=== PATIENT | female | born 1970 | race Caucasian/White ===

== ENCOUNTER 2018-01-10 06:22 | Inpatient (IN) | payer OTHER, SELFPAY ==
[2017-12-27 12:24] VITALS: BMI 34.4
[2018-01-10] VITALS (19 sets, daily range): BP systolic 93–132; BP diastolic 51–78; PULSE 80–104; RESP 12–17; TEMP 36.1–36.7; O2SAT 97–100; BMI 32.7
--- NOTE | 2018-01-10 | DI.RAD.S_ITS ---
PROCEDURE: XR LUMBAR SPINE 2-3V INDICATIONS: L4-5 TLIF TECHNIQUE: 2 views of the lumbar spine were acquired. COMPARISON: None. IMPRESSION: 2 images of the lumbar spine obtained in a mobile intensifier demonstrating darcie and pedicle screw fusion and intervertebral body prosthesis placement at L4-S1. Dictated by: Shay Garibay M.D. on 01/10/2018 at 11:44 Approved by: Shay Garibay M.D. on 01/10/2018 at 11:44
[2018-01-10] MEDS: LACTATED RINGERS 1,000 ML 42 ML IV ×2 (07:00→10:48)
[2018-01-10] MEDS: CLINDAMYCIN 900 MG/50 ML PIGGYBACK 50 MG IV ×3 (07:57→23:34)
--- NOTE | 2018-01-10 08:44 | SUR.OPER ---
Prone on spine table, head in foam head support, padded chest and pelvic supports, gel pad at knees, lower legs supported by pillows; nipples, genitalia and toes free of pressure, arms secured on foam padded arm boards at <90 degrees abduction. Tape over blanket at lower legs, secured to table.
[2018-01-10] MEDS: BUPIVACAINE 0.25% W/ EPI VIAL 30 ML INJ (08:51)
[2018-01-10] MEDS: BUPIVACAINE LIPOSOME 266 MG/20 ML VIAL INJ (08:52)
[2018-01-10] MEDS: HYDROMORPHONE 2 MG INJ 0.5 MG IV ×4 (11:35→12:20)
--- NOTE | 2018-01-10 11:36 | P.OP_ITS ---
Operative Date/Time/Diagnoses Date of procedure: 01/10/18 Time of procedure: 08:30 Pre-op diagnosis: 1. Hx of L5-S1 fusion with pseudoarthrosis 2. L4-5, L5-S1 spinal stenosis 3. L4-5, L5-S1 spondylosis with radiculopathy Post-op diagnosis: same Procedure & Clinicians Procedure: 1. L4-5 Postero-lateral and posterior interbody fusion 2. L4-5 interbody cage placement. 3. L4-5 decompressive laminectomy with bilateral facetecomies 4. L4-5 L5-S1 Posterior segmental instrumentation 5. L5-S1 posterior non-segmental hardware removal 6. L5-S1 exploration of fusion with left hemilaminectomy 7. L5-S1 posterolateral fusion 8. [place] of bone marrow from iliac crest 9. Utilization of microsurgical technique and operating microscope Same procedure as scheduled: Yes Indications: Patient has been having chronic back pain and worsening lumbar radiculopathy. Patient had previous lumbar fusion with over 6 months of good pain relief. Patient has been having worsening pain over the last 4 months failing conservative management. Patient failed multiple conservative management with worsening pain weakness and numbness in her lower extremity. Patient has been having difficulty performing activity of daily living. After discussing risks benefits of treatment options, patient elected proceed with surgery. Surgeon: Misa Headley Press Operator [employer]: Adeline Estes Click Yes if Unassisted: Yes Anesthesia Type: General Operative Notes Closure Type: primary Specimen(s): none sent Implants & Drains: Globus revolve screws and rise Cage Applied: catheter Estimated Blood Loss (mL): 100 Blood products transfused: none Procedure in detail: Patient was seen in the preoperative area. Risks and benefits of the surgery was discussed with the patient. Informed consent was obtained from the patient and placed in the chart. Surgical site was marked. Patient was taken to the operative room. General anesthesia was administered. Prophylactic antibiotic was given to the patient less than 30 min before the incision was made. Patient was placed into a prone position on the John table. Patient's back was then prepped and draped in the sterile fashion. Time- out was performed at this time. Using patient's previous scar incision was made over the L4-5 L5-S1 interval on the right side. Fascia was incised in line with skin incision. Patient's previously placed hardware over the L5-S1 level was identified by dissecting down to the level the hardware using a Bovie and a Poe. The locking caps which was removed using globus screwdriver. The locking darcie was then removed from the tulips of the pedicle screws using a Bimal. The pedicle screws were then removed using the screwdriver. The screws were found to have good purchase. The Globus and MARS retractors was then placed into the wound and docked onto the L4 lamina using C-arm guidance. Using microsurgical technique and operating microscope a laminectomy facetectomy was performed by removing the L4 lamina and the L4-5 facet. The disc space at L4-5 level was identified next. And a total diskectomy was performed at L4-5 level. The endplates were decorticated using a rasp and shaver. The total diskectomy and decortication was performed at L4-5 level in order to to accomplish a L4-5 interbody fusion. The local bone from the laminectomy and facetectomy was saved for local bone grafting. After the total diskectomy and decortication was completed, Globus viacell bone graft material was combined with local bone that was harvested earlier. At this time, a separate skin is incision was made over the iliac crest. A Jamshidi needle was inserted into the iliac crest through a separate skin incision. 5 cc of bone marrow aspiration was obtained through the separate skin incision using a Jamshidi needle from the iliac crest. The bone marrow aspiration was combined with local bone and the via cell bone grafting material. The bone grafting material was placed into the L4-5 interbody space along with a expandable cage. The cage was expanded to its maximum height using the torque limiting screwdriver. At this time a mirror image incision was made on the left side. The fascia was incised in line with the skin incision. Patient's previously placed hardware on the left side was then removed in the same fashion as it was on the right side. The hardware was also found to have good purchase. The fusion mass on the left side was exposed by performing a left-sided hemilaminectomy at L5-S1 level. The hemilaminectomy was performed using the Kerrison rongeur to undercut the lamina as well removing additional epidural scar tissue for purpose of decompressing the epidural space. The fusion mass was explored and was found have visible motion indicating pseudoarthrosis. Globus MARS retractor was inserted and docked onto the L4-5 L5-S1 posterolateral gutter. Using the power drill, posterior-lateral decortication was performed at L4-5 L5-S1 level until bleeding cortical bone was identified. The remaining bone grafting material was placed into the L4-5 L5-S1 posterior lateral gutter he order to accomplish posterolateral fusion at the L4-5 L5-S1 level. Using the double C-arm technique, pedicle screws were placed into the L4, L5 and S1 pedicles bilaterally. This was done by placing the Jamshidi needle into the pedicles, then placing the guidewires over the Jamshidi needle, and finally placing the cannulated screws over the guidewires bilaterally. After the pedicle screws were placed, 2 titanium rods was locked into the heads of the pedicle screws using locking caps and torque limiting screwdriver. After all the hardware was placed, and confirmed with AP and lateral C-arm imaging, the wound was then irrigated with sterile normal saline and packed with Ray-Gladys gauze for 3 min to accomplish hemostasis. After the gauze was removed the deep fascia was closed with #1 Vicryl suture. The subcutaneous layer was closed with 2-0 Vicryl. The skin was closed with skin toby. Patient tolerated the procedure well. There were no complications. Complications: none Condition: stable Disposition: PACU Plan for aftercare: Admit to inpatient hospital
[2018-01-10] MEDS: LORazepam 2 MG/ML SYRINGE 0.5 MG IV ×2 (11:58→12:13)
[2018-01-10] MEDS: fentaNYL 100 MCG/2 ML INJ 50 MCG IV ×2 (12:01→12:12)
[2018-01-10] MEDS: ONDANSETRON 4 MG/2 ML INJ IV (14:03)
[2018-01-10] MEDS: HYDROMORPHONE 1 MG INJ 0.5 MG IV ×3 (14:13→21:04)
[2018-01-10] MEDS: SODIUM CHLORIDE 0.9% 1,000 ML 100 ML IV ×2 (14:14→23:47)
--- NOTE | 2018-01-10 14:38 | PC.NURSE ---
Admission PT arrive from PACU resting comfortably. A/o x3, reports pain improved from post op, has required significant narcotic for pain control. Lungs CTA. RA 96% cont pulse ox in place. Mild nausea, medicated. Pain control given and POC for pain started with Pt. Pre op was taking percolone frequently will monitor pain control effectiveness. Bt hypoactive. Using call light for needs. BA active.
[2018-01-10] MEDS: OXYCODONE IR 5 MG TABLET 10 MG PO ×3 (15:32→22:10)
--- NOTE | 2018-01-10 16:19 | PT.IPTN ---
Current Diagnoses Other spondylosis with radiculopathy, lumbar region (01/10/18) Spinal stenosis, lumbar region without neurogenic claudication (01/10/18) Intervertebral disc disorders with radiculopathy, lumbar region (01/10/18) Arthrodesis status (01/10/18) Surgery Performed Operation Date: 01/10/18 07:45 Actual Procedures p L5-S1 HWR, L4-5 TLIF, L4-5; L5-S1 PSF w/ Instrumentation - Misa Headley MD Physical Therapy Treatment Note M3 PT-IP Subjective Start: 01/10/18 16:17 Freq: NEEDED Status: Active Protocol: Document 01/10/18 16:17 MDD (Rec: 01/10/18 16:18 MDD [id number]) Subjective Physical Therapy Visit Type Type Patient Refusal Notes Attempted to see pt x2 this afternoon. Pt reporting high pain levels (7/10) any time she moves or adjusts in bed and requests to wait for tomorrow. PT will f/u tomorrow am.
[2018-01-10] MEDS: GABAPENTIN 300 MG CAPSULE PO ×2 (16:32→19:27)
[2018-01-10] MEDS: SPIRONOLACTONE 50 MG TABLET PO (19:27)
[2018-01-10] MEDS: DOCUSATE 100 MG CAPSULE PO (19:27)
[2018-01-10] MEDS: SENNOSIDES 8.6 MG TABLET 17.2 MG PO (19:28)
[2018-01-11] VITALS (8 sets, daily range): BP systolic 102–136; BP diastolic 53–76; PULSE 82–101; RESP 16–18; TEMP 36.5–36.9; O2SAT 96–100
[2018-01-11] MEDS: OXYCODONE IR 5 MG TABLET 10 MG PO ×7 (01:06→22:03)
[2018-01-11] MEDS: ACETAMINOPHEN 325 MG TABLET 650 MG PO ×2 (01:08→08:09)
[2018-01-11] MEDS: HYDROMORPHONE 1 MG INJ 0.5 MG IV ×5 (03:05→19:56)
[2018-01-11] MEDS: hydrOXYzine pamoate 25 MG CAPSULE PO ×3 (04:00→23:59)
[2018-01-11 06:03] LABS: Hematocrit 31.2 % (36-46); Hemoglobin 10.7 g/dL (12.0-16.0)
--- NOTE | 2018-01-11 06:25 | PC.NURSE ---
Associate Director- Pt A&OX4, able to make needs known using call light. High fall risk precautions in place, Pt appropriate. Repositioned in bed supported with pillows. Mid/lower back dressing CDI. Denies numbness, tingling, CMS+, pt able to slightly lift BLE off bed, not against resistance. Calf SCD's on to BLE throughout night. At 2330, pt reported 5/10 aching to incisional area. Tylenol & Oxycodone prn given at 0110 for 7/10 pain, pain increased to 7/10 and pt stated she didn't sleep up to when she called at 0300 stating 8/10 pain. Dilaudid 0.5mg IV prn given at 0305. Upon reassessment, pt sleeping for short time. At 0405, Oxycodone & Vistaril given at 0405 for 7/10 pain. VSS, afebrile, denies nausea. IVF infusing to left wrist PIV.
[2018-01-11] MEDS: VENLAFAXINE ER 75 MG CAP 150 MG PO (08:08)
[2018-01-11] MEDS: hydroCHLOROthiazide 25 MG TABLET PO (08:08)
[2018-01-11] MEDS: GABAPENTIN 300 MG CAPSULE PO ×3 (08:08→19:56)
[2018-01-11] MEDS: LORATADINE 10 MG TABLET PO (08:08)
[2018-01-11] MEDS: DOCUSATE 100 MG CAPSULE PO ×2 (08:08→19:56)
[2018-01-11] MEDS: LOSARTAN 50 MG TABLET PO (08:08)
--- NOTE | 2018-01-11 08:36 | P.PN_ITS ---
Subjective Date Patient Seen: 01/11/18 Interval history: Patient seen bedside s/p TLIF POD #1. Patient states that she had a lot of pain overnight and the pain meds are not really working. States that her pain is around a 7, with the lowest being a 5. No N/V, SOB, CP , or calf pain. Does not want her blunt out until tomorrow. Exam Vital Signs (past 8 hours): - 01/11/18 03:15 01/11/18 03:16 01/11/18 07:20 Temperature 97.7 F 98.0 F Pulse Rate 82 83 Respiratory Rate 18 16 Blood Pressure 114/63 116/73 Pulse Oximetry 100 100 Fraction of Inspired Oxygen 21 Oxygen Delivery Method Room Air Oxygen Flow Rate 0 Narrative Exam Narrative: Well-developed well-nourished in no acute distress. Alert and oriented x3. Dressing clean dry and intact. Range of motion of lower extremities intact bilaterally. No focal deficits noted, NVI bilateral lower extremities. Objective Labs Result Diagrams: 01/11/18 05:48 Labs: Laboratory Results - last 24 hr 01/11/18 05:48 Hgb 10.7 L Hct 31.2 L Assessment & Plan Post-op Postoperative Procedures Operation Date: 01/10/18 07:45 Actual Procedures Side Surgeon p L5-S1 HWR, L4-5 TLIF, L4-5; L5-S1 PSF w/ Instrumentation Misa Headley MD 1. Up with PT 2. D/c blunt once patient is ambulatory 3. Continue pain meds, wean off of IV onto orals 4. One time dose of decadron to help with pain 4. Possible d/c Monday depending on how she does with therapy Quality VTE Deep Vein Thrombosis/Pulmonary Embolism Present on Admission: No
--- NOTE | 2018-01-11 09:32 | PT.IIE ---
Current Diagnoses Other spondylosis with radiculopathy, lumbar region (01/10/18) Spinal stenosis, lumbar region without neurogenic claudication (01/10/18) Intervertebral disc disorders with radiculopathy, lumbar region (01/10/18) Arthrodesis status (01/10/18) Surgery Performed Operation Date: 01/10/18 07:45 Actual Procedures p L5-S1 HWR, L4-5 TLIF, L4-5; L5-S1 PSF w/ Instrumentation - Misa Headley MD Surgical History (Last Updated 12/27/17 @ 13:02 by Karena Waldron RN) History of carpal tunnel surgery of right wrist (Acute) History of delivery (Acute) History of hand surgery (Acute) History of lumbar fusion (Acute) Hx of sinus surgery (Acute) S/P hemilaminotomy (Acute) Medical History (Last Updated 12/21/17 @ 14:52 by Karena Waldron RN) Acne (Acute) Back pain (Acute) Chronic sinusitis (Acute) Depression (Acute) Easy bruisability (Acute) Endometriosis (Acute) GERD (gastroesophageal reflux disease) (Acute) H/O ETOH abuse (Acute) H/O: hysterectomy (Acute) HTN (hypertension) (Acute) Left hip pain (Acute) Migraines (Acute) Noncompliance (Acute) Numbness (Acute) Pneumonia (Acute) Thyroid nodule (Acute) Physical Therapy Inpatient Evaluation/Re-Eval M1 PT/OT-IP Prior Functional Status Start: 01/10/18 16:17 Freq: NEEDED Status: Active Protocol: Document 01/11/18 09:32 MDD (Rec: 01/11/18 11:03 MDD [email or web address]) Medical Review Prior Functional Status Medical History Reviewed Yes Communication normal Mobility and Gait independent with no AD Activities of Daily Living and IADL's independent Social History Household Members spouse children Living Arrangements House Number of Floors (Floors) One Floor Number of Stairs To Enter/Railing? 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 She lives with her Petr, in [place]. Her works realtime court reporter, but both her mother and mother in law will be staying with her to help as needed. M2 PT-IP Current Condition Start: 01/10/18 16:17 Freq: NEEDED Status: Active Protocol: Document 01/11/18 09:32 MDD (Rec: 01/11/18 11:03 MDD [email or web address]) Physical Therapy Current Condition Current Condition Evaluation Date 01/11/18 Treatment Diagnosis s/p L4-5, L5-S1 TLIF Onset Date 01/10/18 Precautions Lumbar Precautions Log Roll No Twisting Limit Bending Lifting Restriction of 10 lbs Gait Belt above Incisional Area Other Precautions blunt catheter Weight Bearing Status Weight Bearing Status Weight Bear as Tolerated M3 PT-IP Subjective Start: 01/10/18 16:17 Freq: NEEDED Status: Active Protocol: Document 01/11/18 09:32 MDD (Rec: 01/11/18 11:03 MDD [email or web address]) Subjective Physical Therapy Visit Type Type Initial Evaluation Visit Start Time 09:00 Visit Stop Time 09:32 Total Visit Minutes 32 Notes supine BP: 122/65 mm Hg sitting EOB: 137/87 mm Hg Physical Therapy Visit Comments Patient Comments Pt reports having a tough night due to pain, but agreeable to working with therapy today. Therapy Pain Assessment Pain When Pain Assessed At Rest Pain Present Pain Present Pain Reported Location Back Intensity 6 Scale Used Numeric (1 - 10) Description Aching Pain Management Techniques Timing of Activity with Medications M4 PT-IP Mobility and Gait Start: 01/10/18 16:17 Freq: NEEDED Status: Active Protocol: Document 01/11/18 09:32 MDD (Rec: 01/11/18 11:03 MDD [email or web address]) PT-Bed Mobility Assessment Rolling Type of Rolling Roll to Left Level of Assist Contact Guard Assistance Supine to Sit Supine to Sit Minimal Assistance Scooting Scooting to Edge of Bed Independent PT-Transfer Assessment Sit to and From Stand Sit to and from Stand Minimal Assistance Equipment Transfer Assistive Device Gait Belt Front Wheeled Walker Transfers Transfer Destination Chair Transfer Technique Stand Step Pivot Transfer Ability Level of Assist Contact Guard Assistance Gait Assessment Gait Gait Assistance Required: Standby Assistance Contact Guard Assist Distance (Feet) (feet) 100 Able to Maintain Weight Bearing Status Yes During Gait Assistive Devices Assistive Device Gait Belt Front Wheeled Walker Gait Deviations General Gait Pattern Antalgic Step-to Gait PT-Balance Assessment Sitting Balance and Reactions Static Sitting Balance Ability Normal Dynamic Sitting Balance Ability Normal Standing Balance and Reactions Static Standing Balance Ability Good Dynamic Standing Balance Ability Good M5 PT-IP Objective Assessments Start: 01/10/18 16:17 Freq: NEEDED Status: Active Protocol: Document 01/11/18 09:32 MDD (Rec: 01/11/18 11:03 MDD [email or web address]) Orientation Orientation/Cognition Level of Alertness Alert Orientation Name Age Birthday Month Date Year Day of Week Place Situation Language Function Ability No Deficits Noted Safety Awareness Understands Safety Issues Memory Description No Deficits Noted Gross Range of Motion Lower Extremity ROM Assessment Within Functional Limits Strength Lower Extremity Strength Assessment Within Functional Limits Sensation Assessment Sensation Gross Sensation WNL Light Touch Intact M6 PT-IP Treatment Start: 01/10/18 16:17 Freq: NEEDED Status: Active Protocol: Document 01/11/18 09:32 MDD (Rec: 01/11/18 11:03 MDD [email or web address]) Physical Therapy Treatment Education Education Provided Precautions Weight Bearing Status Post-Op Packet Safety M7 PT-IP Assessment and Plan Start: 01/10/18 16:17 Freq: NEEDED Status: Active Protocol: Document 01/11/18 09:32 MDD (Rec: 01/11/18 11:03 MDD [email or web address]) PT Summary Assessment and Plan Potential Rehabilitation Potential Excellent Status of Condition at Evaluation Stable Summary Impairments Pain Bed Mobility Transfers Gait Activity Tolerance Progress Towards Goals Progressing Toward Goals Assessment Summary Pt demonstrates ability to perform supine to sit with min assist today and sit to stand with min A. Once upright, CGA sufficient for gait with FWW. She continues to be most limited by pain, but is progressing well. Will need to do stair training prior to d/c home. Goals Bed Mobility Goal Independent Transfer Goal Independent Gait Goal Independent Gait Distance 150 Other Goals Ascend/descend 2 steps with no railing. Days to Meet Goals 3 Frequency of Treatment Frequency Of Treatment Twice a Day Treatment Plan Physical Therapy Treatment Plan Bed Mobility Training Transfer Training Gait Training Therapeutic Exercise Post Op Education Other Recommendations and Next Treatment Continue to practice log roll Focus for bed mobility, progress gait endurance and stair training. Recommendations To Nursing Amount of Assist Needed 1 Person Assist Discharge Recommendations PT Discharge Recommendations Home with Assistance
[2018-01-11] MEDS: DEXAMETHASONE 10 MG/ML VIAL 8 MG IV (10:34)
--- NOTE | 2018-01-11 15:08 | PT.IPTN ---
Current Diagnoses Other spondylosis with radiculopathy, lumbar region (01/10/18) Spinal stenosis, lumbar region without neurogenic claudication (01/10/18) Intervertebral disc disorders with radiculopathy, lumbar region (01/10/18) Arthrodesis status (01/10/18) Surgery Performed Operation Date: 01/10/18 07:45 Actual Procedures p L5-S1 HWR, L4-5 TLIF, L4-5; L5-S1 PSF w/ Instrumentation - Misa Headley MD Physical Therapy Treatment Note M2 PT-IP Current Condition Start: 01/10/18 16:17 Freq: NEEDED Status: Active Protocol: Document 01/11/18 09:32 MDD (Rec: 01/11/18 11:03 MDD [email or web address]) Physical Therapy Current Condition Current Condition Evaluation Date 01/11/18 Treatment Diagnosis s/p L4-5, L5-S1 TLIF Onset Date 01/10/18 Precautions Lumbar Precautions Log Roll No Twisting Limit Bending Lifting Restriction of 10 lbs Gait Belt above Incisional Area Other Precautions blunt catheter Weight Bearing Status Weight Bearing Status Weight Bear as Tolerated M3 PT-IP Subjective Start: 01/10/18 16:17 Freq: NEEDED Status: Active Protocol: Document 01/11/18 15:08 MDD (Rec: 01/11/18 16:46 MDD [email or web address]) Subjective Physical Therapy Visit Type Type Treatment Note Visit Start Time 14:47 Visit Stop Time 15:08 Total Visit Minutes 21 Number of DRAW TENDER Visits 0 Physical Therapy Visit Comments Patient Comments Pt is motivated to get up out of the recliner. Reports she has been in the same position for too long. Therapy Pain Assessment Pain When Pain Assessed At Rest Pain Present Pain Present Pain Reported Location Back Intensity 6 Scale Used Numeric (1 - 10) Description Aching Pain Management Techniques Apply Cold Timing of Activity with Medications M4 PT-IP Mobility and Gait Start: 01/10/18 16:17 Freq: NEEDED Status: Active Protocol: Document 01/11/18 15:08 MDD (Rec: 01/11/18 16:46 MDD [email or web address]) PT-Bed Mobility Assessment Rolling Type of Rolling Roll to Left Level of Assist Standby Assistance Supine to Sit Supine to Sit Contact Guard Assistance Sit to Supine Sit to Supine Independent Scooting Scooting to Edge of Bed Independent PT-Transfer Assessment Sit to and From Stand Sit to and from Stand Standby Assistance Equipment Transfer Assistive Device Gait Belt Front Wheeled Walker Transfer Ability Level of Assist Standby Assistance Gait Assessment Gait Gait Assistance Required: Standby Assistance Distance (Feet) (feet) 212 Able to Maintain Weight Bearing Status No During Gait Assistive Devices Assistive Device Gait Belt Front Wheeled Walker Gait Deviations General Gait Pattern Antalgic Comments Gait Comments Pt ambulated 212 feet today. Demonstrating decreased reliance on UE's and improved gait pattern. PT-Balance Assessment Sitting Balance and Reactions Static Sitting Balance Ability Normal Dynamic Sitting Balance Ability Normal M5 PT-IP Objective Assessments Start: 01/10/18 16:17 Freq: NEEDED Status: Active Protocol: Document 01/11/18 09:32 MDD (Rec: 01/11/18 11:03 MDD [email or web address]) Orientation Orientation/Cognition Level of Alertness Alert Orientation Name Age Birthday Month Date Year Day of Week Place Situation Language Function Ability No Deficits Noted Safety Awareness Understands Safety Issues Memory Description No Deficits Noted Gross Range of Motion Lower Extremity ROM Assessment Within Functional Limits Strength Lower Extremity Strength Assessment Within Functional Limits Sensation Assessment Sensation Gross Sensation WNL Light Touch Intact M6 PT-IP Treatment Start: 01/10/18 16:17 Freq: NEEDED Status: Active Protocol: Document 01/11/18 15:08 MDD (Rec: 01/11/18 16:46 MDD [email or web address]) Physical Therapy Treatment Education Education Provided Precautions Post-Op Packet Safety M7 PT-IP Assessment and Plan Start: 01/10/18 16:17 Freq: NEEDED Status: Active Protocol: Document 01/11/18 15:08 MDD (Rec: 01/11/18 16:46 MDD [email or web address]) PT Summary Assessment and Plan Potential Rehabilitation Potential Good Status of Condition at Evaluation Stable Summary Impairments Pain Bed Mobility Transfers Gait Activity Tolerance Progress Towards Goals Progressing Toward Goals Assessment Summary Pt demonstrates ability to perform supine to sit with min assist today and sit to stand with min A. Once upright, CGA sufficient for gait with FWW. She continues to be most limited by pain, but is progressing well. Will need to do stair training prior to d/c home. Goals Bed Mobility Goal Independent Transfer Goal Independent Gait Goal Independent Gait Distance 150 Other Goals Ascend/descend 2 steps with no railing. Days to Meet Goals 3 Frequency of Treatment Frequency Of Treatment Twice a Day Treatment Plan Physical Therapy Treatment Plan Bed Mobility Training Transfer Training Gait Training Therapeutic Exercise Post Op Education Other Recommendations and Next Treatment Stair training tomorrow. Focus Recommendations To Nursing Amount of Assist Needed 1 Person Assist Discharge Recommendations PT Discharge Recommendations Home with Assistance
--- NOTE | 2018-01-11 15:11 | CM.IDA ---
Discharge Planning/Care Management CM Discharge Assessment Start: 01/11/18 14:42 Freq: Status: Active Protocol: Document 01/11/18 14:49 FLORENCIO (Rec: 01/11/18 14:56 FLORENCIO [id number]) Discharge Planning Assessment Assigned Life Insurance Actuary CHRISTINE/Bobbi CHAVEZ/Assigned Designee Name spouse Petr Lawson Contact Information [phone] Advance Directives? No: Declines further information Advance Directives on File No History Provided By Patient Prior Living Arrangements House Household Members spouse children Comment Spouse and 9 yo son Type of transporation used prior to Drives own vehicle admit Independent with ADL's Yes Is patient alert and oriented? Yes Comment Pt plans to return home w/ assist from her family, her mom and her mother in law. Comment Pt had spinal surgery last year and went home w/family support at that time also. Pt plans to take time off work. Barriers to Discharge No Discharge Plan Home Transportation Arrangement Family Inpatient Status as of 01/10/18 Whiteboard Updated in Patient Room with Yes name and ext. # of Life Insurance Actuary Review Status In Process
--- NOTE | 2018-01-11 15:30 | OT.IP.EVAL ---
Current Diagnoses Other spondylosis with radiculopathy, lumbar region (01/10/18) Spinal stenosis, lumbar region without neurogenic claudication (01/10/18) Intervertebral disc disorders with radiculopathy, lumbar region (01/10/18) Arthrodesis status (01/10/18) Surgery Performed Operation Date: 01/10/18 07:45 Actual Procedures p L5-S1 HWR, L4-5 TLIF, L4-5; L5-S1 PSF w/ Instrumentation - Misa Headley MD Past Medical History (Last Updated 12/21/17 @ 14:52 by Karena Waldron RN) Acne (Acute) Back pain (Acute) Chronic sinusitis (Acute) Depression (Acute) Easy bruisability (Acute) Endometriosis (Acute) GERD (gastroesophageal reflux disease) (Acute) H/O ETOH abuse (Acute) H/O: hysterectomy (Acute) HTN (hypertension) (Acute) Left hip pain (Acute) Migraines (Acute) Noncompliance (Acute) Numbness (Acute) Pneumonia (Acute) Thyroid nodule (Acute) Surgical History (Last Updated 12/27/17 @ 13:02 by Karena Waldron RN) History of carpal tunnel surgery of right wrist (Acute) History of delivery (Acute) History of hand surgery (Acute) History of lumbar fusion (Acute) Hx of sinus surgery (Acute) S/P hemilaminotomy (Acute) Occupational Therapy Inpatient Evaluation/Re-Eval M1 PT/OT-IP Prior Functional Status Start: 01/10/18 16:17 Freq: NEEDED Status: Active Protocol: Document 01/11/18 15:30 ALBERT (Rec: 01/11/18 16:11 PJBarb [id number]) Medical Review Prior Functional Status Medical History Reviewed Yes Diet/Fluid Consistency Regular Communication WNL Mobility and Gait independent with no AD Activities of Daily Living and IADL's independent Prior Functional Level (Other details) 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 She plans to take 3-4 week off work. She reports that she has an adjustable height desk with good ergonomic desk chair. Social History Household Members spouse children Living Arrangements House Number of Floors (Floors) One Floor Number of Stairs To Enter/Railing? 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 Her mother in law and mother will stay with pt x 1 week. M2 OT-IP Current Condition Start: 01/11/18 15:43 Freq: Status: Active Protocol: Document 01/11/18 15:30 PJM (Rec: 01/11/18 16:11 [facility] [id number]) Occupational Therapy Current Condition Current Condition Evaluation Date 01/11/18 Treatment Diagnosis decreased self care, functional mobility s/p L4-5 lami, L5-S1 TLIF Diagnosis Onset Date 01/10/18 Post Operative Precautions Lumbar Precautions Log Roll No Twisting Limit Bending Lifting Restriction of 10 lbs Gait Belt above Incisional Area Other Precautions blunt catheter Weight Bearing Status Weight Bearing Status Weight Bear as Tolerated M3 OT- IP Subjective and Pain Start: 01/11/18 15:43 Freq: Status: Active Protocol: Document 01/11/18 15:30 PJM (Rec: 01/11/18 16:11 [facility] [id number]) OT- Subjective Occupational Therapy Visit Type Type Initial Evaluation Visit Start Time 15:05 Visit Stop Time 15:30 Total Visit Minutes 25 Notes Pt familiar with lumbar spine precautions and adapted ADLs from previous lumbar surgery 1 yr ago. Occupational Therapy Visit Comments Patient Comments I still have the equipment I need from my last surgery. Patient/Caregiver Goals to return to work within 3-4 weeks, to have less back pain OT Pain Assessment Pain When Pain Assessed After Treatment Pain Present Pain Present Pain Reported Location Back Intensity 6 Scale Used Numeric (1 - 10) Description Aching Acute Pain Behaviors Guarding M4 OT- IP ADL's Start: 01/11/18 15:43 Freq: Status: Active Protocol: Document 01/11/18 15:30 PJM (Rec: 01/11/18 16:11 [facility] [id number]) OT [id number] General Evaluation Self-Feeding Ability Independent OT ADL-Grooming General Evaluation Grooming Ability Standby Assistance Comments OT Grooming Comments per pt report, standing at sink OT ADL-Oral Care General Eval Oral Care Ability Standby Assistance Comments Oral Care Comments per pt report, standing at sink OT ADL-Dressing General Eval Upper Body Dressing Ability Independent Lower Body Dressing Ability Minimal Assistance Assistive Devices Dressing Assistive Devices Long Handled Shoe Horn Car Attendant Sock Aid Comments OT Dressing Comments Pt familiar with use of chief orthoptist to don underwear and pants from previous surgery. Has soft sock aid but rarely wears socks and can assist PRN. Wears slip on shoes. Provided long shoe horn at pt request. OT ADL-Toileting General Evaluation Toileting Ability Independent Comments OT Toileting Comments Pt familiar with lumbar precautions and has Juvo toilet paper aid from last surgery. OT ADL-Bathing Bathing Type Bathing Type Shower Devices Bathing Equipment Long Handled Sponge or [employer] Planner Held Shower Sprayer Shower Chair without Arms Comments OT Bathing Comments Pt familiar with adapted techniques from previous surgery and has all necessary equipt. Family will assist PRN . M5 OT- IP IADL's Start: 01/11/18 15:43 Freq: Status: Active Protocol: Document 01/11/18 15:30 PJ (Rec: 01/11/18 16:11 [facility] [id number]) OT-Instrumental Activities of Daily Living Deficits IADL Deficits Identified Deficits Home Safety Awareness Awareness of Need for Assistance at Home Good Awareness Ability to Problem Solve Emergency Able to Problem Solve Situations Medication Management Medication Management No Deficits Identified Money Management Money Management No Deficits Identified Meal Preparation Meal Preparation Caregiver Provides Assist Meal Preparation Comments Family to assist until pt able Wire Chief Wire Chief Caregiver Provides Assist Wire Chief Comments Family to assist until pt able Driving Driving Caregiver Provides Assist Driving Comments Family to assist until pt able M6 OT- IP Functional Cognition Start: 01/11/18 15:43 Freq: Status: Active Protocol: Document 01/11/18 15:30 PJM (Rec: 01/11/18 16:11 [facility] [id number]) Cognitive Factors Limiting Selfcare Function Cognitive Ability Level of Alertness Alert Patient Orientation Name Age Birthday Month Date Year Day of Week Place Situation Attention Span Ability Capable of Focused Attention Capable of Sustained Attention Ability to Follow Commands Able to Follow Multi-Step Commands Memory Description No Deficits Noted Safety Awareness No Deficits Noted Problem Solving Ability No deficits Noted Executive Function Ability No Deficits Noted Abstract Thinking Ability No Deficits Noted Cognitive Comments Cognitive Assessment Comments Pt has good recall of previous education re: lumbar spine precautions and adapted ADLS OT- Vision and Hearing OT- Hearing Assessment OT- Hearing Assessment WFL OT- Vision Assessment Visual Attentiveness WFL Vision Assessment Comments No recent changes per pt. M7 OT- IP Mobility and Balance Start: 01/11/18 15:43 Freq: Status: Active Protocol: Document 01/11/18 15:30 PJM (Rec: 01/11/18 16:11 PJ [id number]) OT-Transfer Assessment Comments Mobility Comments Pt declined OOB this session. See P.T. notes. OT- Gait Assessment Comments Gait Ability Comments Pt declined OOB this session. See P.T. notes. OT- Balance Assessment Comments Other Balance Tests/Deviations/Treatment Pt declined OOB this session. : See P.T. notes. M8 OT- IP Objective Assessments Start: 01/11/18 15:43 Freq: Status: Active Protocol: Document 01/11/18 15:30 PJM (Rec: 01/11/18 16:11 PJ [id number]) OT Strength Upper Extremity Strength Assessment Within Functional Limits OT- Coordination Assessment Comments Coordination Comments BUE WFL OT-Muscle Tone Assessment Muscle Tone WNL Yes OT Sensation Assessment Comments Summary Comments Pt denies BUE sensory deficits . Edema Edema Absent M9 OT- IP Assessment and Plan Start: 01/11/18 15:43 Freq: Status: Active Protocol: Document 01/11/18 15:30 PJM (Rec: 01/11/18 16:11 PJ [id number]) OT Summary Assessment and Plan Potential Rehabilitation Potential Excellent Analytic Complexity at Evaluation Low Summary Progress Towards Goals Safe For Discharge Goals Met Assessment Summary Low complexity OT assessment completed and brief review of lumbar spine precautions and adapted ADL techniques. Pt is familiar with this information from previous lumbar surgery about 1 yr ago. No further OT goals identified for this admission. Pt plans to discharge home when medically stable and clears P.T. with working and mother and mother in law to stay with her for first week Frequency of Treatment Frequency Of Treatment Discharge Treatment Plan Other Treatment Recommendations and Next No further OT services needed. Treatment Focus Discharge Recommendations OT Discharge Recommendations Home with Assistance Home Equipment Needs Pt has all necessary equipment .
--- NOTE | 2018-01-11 17:51 | PC.NURSE ---
Ashley shift note: Patient awake, alert, and pleasant. CMS intact to BLE. Up out of bed with PT. Island barrier dressing to lower back, CDI. Requiring IV pain medications for breakthrough pain in between PO Percolone. SCDs in place. Family at bedside providing supportive care. Uses call light appropriately.
[2018-01-11] MEDS: SENNOSIDES 8.6 MG TABLET 17.2 MG PO (19:56)
[2018-01-11] MEDS: SPIRONOLACTONE 50 MG TABLET PO (19:56)
[2018-01-12] VITALS (7 sets, daily range): BP systolic 111–134; BP diastolic 57–76; PULSE 80–99; RESP 16–20; TEMP 36.4–36.8; O2SAT 98–100
[2018-01-12] MEDS: OXYCODONE IR 5 MG TABLET 10 MG PO ×3 (00:57→07:34)
--- NOTE | 2018-01-12 01:23 | PC.NURSE ---
Addendum entered by Aletha Soriano R.N. 01/12/18 06:09: Breakthrough pain [id number], given percolone and vistaril which was not effective. She was uncomfortable with any movement, medicated with dilaudid 0.5 mg @ 0610. Original Note: [id number] Marni was awake at change of shift, complaining of generalized discomfort, unable to get more than 20-30 minutes of rest,pain 4/10, discussed pain management options and her preferences. She has been on muscle relaxants pre -op which helped and had no problems w/ sleep. Given vistaril 25 mg at 2400, little effect, percolone 10 mg given at 0100.
[2018-01-12] MEDS: hydrOXYzine pamoate 25 MG CAPSULE PO ×4 (04:27→18:42)
[2018-01-12] MEDS: HYDROMORPHONE 1 MG INJ 0.5 MG IV (06:04)
--- NOTE | 2018-01-12 08:22 | PM.PNPO.1 ---
Subjective Date Patient Seen: 01/12/18 Interval history: Patient is seen bedside status post TLIF revision POD #2. Pain has not been well controlled and she required IV dilaudid overnight. Blunt is still in place. Denies N/V, SOB, CP, or calf pain. Exam Vital Signs (past 8 hours): - 01/12/18 04:20 Temperature 98.2 F Pulse Rate 80 Respiratory Rate 17 Blood Pressure 133/76 Pulse Oximetry 98 Fraction of Inspired Oxygen 21 Oxygen Delivery Method Room Air Oxygen Flow Rate 0 Narrative Exam Narrative: Well-developed well-nourished no acute distress. Alert and oriented x3. Calves are soft and compressible and she has full range of motion. She is neurovascularly intact bilateral lower extremities. Dressing is clean dry and intact. Objective Labs Result Diagrams: 01/11/18 05:48 Assessment & Plan Post-op Postoperative Procedures Operation Date: 01/10/18 07:45 Actual Procedures Side Surgeon p L5-S1 HWR, L4-5 TLIF, L4-5; L5-S1 PSF w/ Instrumentation Misa Headley MD 1. Change pain medication to oral Dilaudid 2. Continue physical therapy and occupational therapy. 3. Remove blunt. 4. Discharge home tomorrow morning. Quality VTE Deep Vein Thrombosis/Pulmonary Embolism Present on Admission: No
[2018-01-12] MEDS: DOCUSATE 100 MG CAPSULE PO ×2 (09:00→20:01)
[2018-01-12] MEDS: hydroCHLOROthiazide 25 MG TABLET PO (09:00)
[2018-01-12] MEDS: GABAPENTIN 300 MG CAPSULE PO ×3 (09:00→20:01)
[2018-01-12] MEDS: LORATADINE 10 MG TABLET PO (09:01)
[2018-01-12] MEDS: LOSARTAN 50 MG TABLET PO (09:01)
[2018-01-12] MEDS: VENLAFAXINE ER 75 MG CAP 150 MG PO (09:01)
[2018-01-12] MEDS: HYDROMORPHONE 2 MG TABLET 4 MG PO ×4 (09:03→18:42)
--- NOTE | 2018-01-12 10:15 | PT.IPTN ---
Current Diagnoses Other spondylosis with radiculopathy, lumbar region (01/10/18) Spinal stenosis, lumbar region without neurogenic claudication (01/10/18) Intervertebral disc disorders with radiculopathy, lumbar region (01/10/18) Arthrodesis status (01/10/18) Surgery Performed Operation Date: 01/10/18 07:45 Actual Procedures p L5-S1 HWR, L4-5 TLIF, L4-5; L5-S1 PSF w/ Instrumentation - Misa Headley MD Physical Therapy Treatment Note M2 PT-IP Current Condition Start: 01/10/18 16:17 Freq: NEEDED Status: Active Protocol: Document 01/11/18 09:32 MDD (Rec: 01/11/18 11:03 MDD [id number]) Physical Therapy Current Condition Current Condition Evaluation Date 01/11/18 Treatment Diagnosis s/p L4-5, L5-S1 TLIF Onset Date 01/10/18 Precautions Lumbar Precautions Log Roll No Twisting Limit Bending Lifting Restriction of 10 lbs Gait Belt above Incisional Area Other Precautions blunt catheter Weight Bearing Status Weight Bearing Status Weight Bear as Tolerated M3 PT-IP Subjective Start: 01/10/18 16:17 Freq: NEEDED Status: Active Protocol: Document 01/12/18 10:15 MDD (Rec: 01/12/18 12:18 MDD [id number]) Subjective Physical Therapy Visit Type Type Treatment Note Visit Start Time 09:42 Visit Stop Time 10:15 Total Visit Minutes 33 Number of BUHR DRESSER Visits 0 Physical Therapy Visit Comments Patient Comments Pt reports being unable to sleep last night, but agreeable to participate with PT this am and try stairs. Therapy Pain Assessment Pain When Pain Assessed At Rest Pain Present Pain Present Pain Reported Location Back Intensity 4 Scale Used Numeric (1 - 10) Description Aching Pain Management Techniques Timing of Activity with Medications M4 PT-IP Mobility and Gait Start: 01/10/18 16:17 Freq: NEEDED Status: Active Protocol: Document 01/12/18 10:15 MDD (Rec: 01/12/18 12:18 MDD [id number]) PT-Bed Mobility Assessment Rolling Type of Rolling Roll to Left Level of Assist Independent Supine to Sit Supine to Sit Standby Assistance Bedrails Sit to Supine Sit to Supine Independent Scooting Scooting to Edge of Bed Independent PT-Transfer Assessment Sit to and From Stand Sit to and from Stand Standby Assistance Equipment Transfer Assistive Device Gait Belt Front Wheeled Walker Gait Assessment Gait Gait Assistance Required: Standby Assistance Distance (Feet) (feet) 250 Able to Maintain Weight Bearing Status Yes During Gait Assistive Devices Assistive Device Gait Belt Front Wheeled Walker Gait Deviations General Gait Pattern Antalgic Decreased Stride Length Narrow Based Gait Comments Gait Comments Pt requires cues for posture and maintaining normal breathing, but is stable on her feet. Stair Climbing Assessment Evaluation Level of Assist On Stairs Minimal Assistance Devices Stair Climbing Assistive Devices Small Base Quad Cane Technique/Endurance Stair Climbing Direction Ascend and Descend Stair Climbing Technique Step to Step Number of Steps Climbed 3 Query Text: Stair Climbing Set # Repetitions (reps) 2 Comments Stair Climbing Comments Pt performed 1st set of stairs with quad cane and R railing. Second set performed with quad cane and handhold assist. PT-Balance Assessment Sitting Balance and Reactions Static Sitting Balance Ability Normal Dynamic Sitting Balance Ability Normal Standing Balance and Reactions Static Standing Balance Ability Good Dynamic Standing Balance Ability Good M5 PT-IP Objective Assessments Start: 01/10/18 16:17 Freq: NEEDED Status: Active Protocol: Document 01/11/18 09:32 MDD (Rec: 01/11/18 11:03 MDD [id number]) Orientation Orientation/Cognition Level of Alertness Alert Orientation Name Age Birthday Month Date Year Day of Week Place Situation Language Function Ability No Deficits Noted Safety Awareness Understands Safety Issues Memory Description No Deficits Noted Gross Range of Motion Lower Extremity ROM Assessment Within Functional Limits Strength Lower Extremity Strength Assessment Within Functional Limits Sensation Assessment Sensation Gross Sensation WNL Light Touch Intact M6 PT-IP Treatment Start: 01/10/18 16:17 Freq: NEEDED Status: Active Protocol: Document 01/12/18 10:15 MDD (Rec: 01/12/18 12:18 MDD [id number]) Physical Therapy Treatment Education Education Provided Precautions Safety M7 PT-IP Assessment and Plan Start: 01/10/18 16:17 Freq: NEEDED Status: Active Protocol: Document 01/12/18 10:15 MDD (Rec: 01/12/18 12:18 MDD [id number]) PT Summary Assessment and Plan Potential Rehabilitation Potential Excellent Status of Condition at Evaluation Stable Summary Impairments Bed Mobility Transfers Gait Activity Tolerance Progress Towards Goals Progressing Toward Goals Assessment Summary Pt continues to require bed rails for bed mobility, but is demonstrating improved gait pattern and activity tolerance . Will benefit from an additional session practicing stairs. Her mother may be availbale for caregiver training tomorrow, but this may not be necessary if pt reports improved confidence with stairs this afternoon. Goals Bed Mobility Goal Independent Transfer Goal Independent Gait Goal Independent Gait Distance 150 Other Goals Ascend/descend 2 steps with no railing. Days to Meet Goals 3 Frequency of Treatment Frequency Of Treatment Twice a Day Treatment Plan Physical Therapy Treatment Plan Bed Mobility Training Transfer Training Gait Training Therapeutic Exercise Post Op Education Other Recommendations and Next Treatment Stair training tomorrow. Focus Recommendations To Nursing Amount of Assist Needed 1 Person Assist Discharge Recommendations PT Discharge Recommendations Home with Assistance
[2018-01-12] MEDS: ACETAMINOPHEN 325 MG TABLET 650 MG PO ×2 (11:57→20:03)
[2018-01-12] MEDS: HYDROMORPHONE 2 MG TABLET PO ×2 (15:34→21:05)
--- NOTE | 2018-01-12 16:30 | PT.IPTN ---
Current Diagnoses Other spondylosis with radiculopathy, lumbar region (01/10/18) Spinal stenosis, lumbar region without neurogenic claudication (01/10/18) Intervertebral disc disorders with radiculopathy, lumbar region (01/10/18) Arthrodesis status (01/10/18) Surgery Performed Operation Date: 01/10/18 07:45 Actual Procedures p L5-S1 HWR, L4-5 TLIF, L4-5; L5-S1 PSF w/ Instrumentation - Misa Headley MD Physical Therapy Treatment Note M2 PT-IP Current Condition Start: 01/10/18 16:17 Freq: NEEDED Status: Active Protocol: Document 01/11/18 09:32 MDD (Rec: 01/11/18 11:03 MDD [email or web address]) Physical Therapy Current Condition Current Condition Evaluation Date 01/11/18 Treatment Diagnosis s/p L4-5, L5-S1 TLIF Onset Date 01/10/18 Precautions Lumbar Precautions Log Roll No Twisting Limit Bending Lifting Restriction of 10 lbs Gait Belt above Incisional Area Other Precautions blunt catheter Weight Bearing Status Weight Bearing Status Weight Bear as Tolerated M3 PT-IP Subjective Start: 01/10/18 16:17 Freq: NEEDED Status: Active Protocol: Document 01/12/18 16:30 AB (Rec: 01/12/18 17:22 AB [id number]) Subjective Physical Therapy Visit Type Type Treatment Note Visit Start Time 16:30 Visit Stop Time 17:08 Total Visit Minutes 38 Number of SALES AND MARKETING ADMINISTRATOR Visits 0 Physical Therapy Visit Comments Patient Comments I need to use the bathroom Therapy Pain Assessment Pain When Pain Assessed During Mobility Pain Present Pain Present Pain Reported Location Back Intensity 4 Scale Used Numeric (1 - 10) Pain Management Techniques Re-positioning Timing of Activity with Medications M4 PT-IP Mobility and Gait Start: 01/10/18 16:17 Freq: NEEDED Status: Active Protocol: Document 01/12/18 16:30 AB (Rec: 01/12/18 17:22 AB [id number]) PT-Bed Mobility Assessment Rolling Type of Rolling Log Rolling Level of Assist Standby Assistance Supine to Sit Supine to Sit Standby Assistance Contact Guard Assistance Sit to Supine Sit to Supine Standby Assistance Contact Guard Assistance Scooting Scooting to Edge of Bed Standby Assistance PT-Transfer Assessment Sit to and From Stand Sit to and from Stand Standby Assistance Equipment Transfer Assistive Device Gait Belt Front Wheeled Walker Transfers Transfer Destination Toilet Transfer Technique pt ambulated using FWW bed to the toilet SBA Comments Mobility Comments Pt requires cues for technqiues for log roll bed mobility and for stand to sit to control descent. pt stated that she will be sleeping on a recliner at home for a few days before she uses her bed. pt ambulated to the toilet using FWW SBA. completed toileting without assistance. pt ambulated towards the sink and was able to maintain standing using FWW for support while completing handwashing. Gait Assessment Gait Gait Assistance Required: Standby Assistance Distance (Feet) (feet) 250 Able to Maintain Weight Bearing Status Yes During Gait Assistive Devices Assistive Device Gait Belt Front Wheeled Walker Orthotic/Prosthetic Devices or Brace: No Gait Deviations General Gait Pattern Decreased Stride Length Factors Limiting Gait Function Factors Limiting Gait Function Decreased Activity Tolerance Decreased Strength Pain Poor Balance Stair Climbing Assessment Evaluation Level of Assist On Stairs Contact Guard Assistance Devices Stair Climbing Assistive Devices Small Base Quad Cane Technique/Endurance Stair Climbing Direction Ascend and Descend Stair Climbing Technique Step to Step Number of Steps Climbed 4 Query Text: Stair Climbing Set # Repetitions (reps) 2 Comments Stair Climbing Comments pt requires cues for stair climbing techniques and safety . M5 PT-IP Objective Assessments Start: 01/10/18 16:17 Freq: NEEDED Status: Active Protocol: Document 01/11/18 09:32 MDD (Rec: 01/11/18 11:03 MDD [id number]) Orientation Orientation/Cognition Level of Alertness Alert Orientation Name Age Birthday Month Date Year Day of Week Place Situation Language Function Ability No Deficits Noted Safety Awareness Understands Safety Issues Memory Description No Deficits Noted Gross Range of Motion Lower Extremity ROM Assessment Within Functional Limits Strength Lower Extremity Strength Assessment Within Functional Limits Sensation Assessment Sensation Gross Sensation WNL Light Touch Intact M6 PT-IP Treatment Start: 01/10/18 16:17 Freq: NEEDED Status: Active Protocol: Document 01/12/18 16:30 AB (Rec: 01/12/18 17:22 AB [id number]) Physical Therapy Treatment Education Education Provided Precautions Safety M7 PT-IP Assessment and Plan Start: 01/10/18 16:17 Freq: NEEDED Status: Active Protocol: Document 01/12/18 16:30 AB (Rec: 08/31/18 17:22 AB [id number]) PT Summary Assessment and Plan Potential Rehabilitation Potential Good Summary Impairments Pain ROM Strength Balance Bed Mobility Transfers Gait Activity Tolerance Progress Towards Goals Progressing Toward Goals Assessment Summary pt progressing with mobility. requires SBA and occasional CGA with bed mobility. pt plans to go home with family to assist her. Goals Bed Mobility Goal Independent Transfer Goal Independent Gait Goal Independent Gait Distance 150 Other Goals Ascend/descend 2 steps using quad cane SBA Days to Meet Goals 3 Frequency of Treatment Frequency Of Treatment Twice a Day Treatment Plan Physical Therapy Treatment Plan Bed Mobility Training Transfer Training Gait Training Therapeutic Exercise Post Op Education Other Recommendations and Next Treatment Stair training tomorrow. Focus Recommendations To Nursing Amount of Assist Needed 1 Person Assist Discharge Recommendations PT Discharge Recommendations Home with Assistance
[2018-01-12] MEDS: SPIRONOLACTONE 50 MG TABLET PO (20:01)
[2018-01-12] MEDS: SENNOSIDES 8.6 MG TABLET 17.2 MG PO (20:01)
[2018-01-13] MEDS: hydrOXYzine pamoate 25 MG CAPSULE PO ×2 (00:38→08:24)
[2018-01-13] MEDS: HYDROMORPHONE 2 MG TABLET PO (00:38)
[2018-01-13] MEDS: ACETAMINOPHEN 325 MG TABLET 650 MG PO ×2 (02:25→08:23)
[2018-01-13] MEDS: HYDROMORPHONE 4 MG TABLET PO ×4 (03:36→12:48)
[2018-01-13 07:15] VITALS: BP 128/77; PULSE 83; RESP 13; TEMP 36.5; O2SAT 100
--- NOTE | 2018-01-13 07:34 | P.DS_ITS ---
History of Present Illness Date Patient Seen: 01/13/18 Chief complaint: [id number] Narrative: Patient seen s/p TLIF revision POD #3. Doing well with PT, pain is controlled, patient is ready to go home today. Discharge Providers Date of admission: 01/10/18 06:22 Primary care physician: Bennett Ramirez MD Consults: 01/10/18 13:27 Consult to Occupational Therapy Evaluate & Treat Comment: Physician Instructions: Evaluate and treat Consult to Physical Therapy Evaluate & Treat Comment: Physician Instructions: Evaluate and Treat Discharge provider: Felisa Cristina PA-C Summary Discharge Diagnosis: 1. Osteoarthritis of lumbar spine with radiculopathy 2. Spinal stenosis of spine at multiple levels Hospital Course: Patient was admitted to the hospital status post L5-S1 HWR, L4- 5 TLIF, and L4-S1 PSF with instrumentation for revision on 01/10/18. Patient tolerated the procedure well with no complications. She was transferred to the acute care floor where she was seen by Physical therapy who recommended discharged home. She was stable and ready for discharge on 01/13/2018. Status at Discharge Cognitive/behavioral status at discharge: Alert & oriented x4 Functional status at discharge: uses cane/walker Overall status at discharge: patient is progressing back to baseline Time Spent with Patient Less than 30 minutes Exam Vital Signs (past 8 hours): Fraction of Inspired Oxygen 21 Oxygen Delivery Method Room Air Oxygen Flow Rate 0 Narrative Exam Narrative: Well-developed well-nourished no acute distress. Alert oriented x3. Dressing is clean, dry, and intact with no signs of discharge. BLE are NVI with full ROM, ambulating well with walker. Calves are soft and compressible. Objective Labs Result Diagrams: 01/11/18 05:48 Discharge Plan Discharge Plan Patient Disposition: Home Discharge Med Rec/Prescriptions Prescriptions: New hydromorphone 2 mg Tablet 2 mg PO Q4-6H PRN (Reason: Pain, Severe (7-10)) Qty: 40 RF: 0 docusate sodium 100 mg Capsule 100 mg PO BID Qty: 0 RF: 0 hydroxyzine pamoate 25 mg Capsule 25 mg PO Q4HR PRN (Reason: Nausea And Vomiting) Qty: 50 RF: 1 Continue venlafaxine [Effexor XR] 150 MG capsule,extended release 24hr 150 mg PO QDAY Qty: 0 RF: 0 losartan 25 MG tablet 50 mg PO QDAY Qty: 0 RF: 0 hydrochlorothiazide 25 MG tablet 25 mg PO QDAY Qty: 0 RF: 0 gabapentin [Neurontin] 300 MG capsule 300 mg PO TID Qty: 0 RF: 0 rizatriptan [Maxalt] 5 MG tablet 5 mg PO BIDP PRN (Reason: migraines) Qty: 0 RF: 0 spironolactone 50 mg Tablet 50 mg PO BEDTIME RF: 0 cyclobenzaprine 10 MG tablet 10 mg PO TIDP PRN (Reason: muscle spasms) RF: 0 acetaminophen [Tylenol Extra Strength] 500 mg Tablet 1,500 mg PO TID RF: 0 loratadine 10 mg Capsule 10 mg PO DAILY RF: 0 Discontinued ibuprofen 800 MG tablet 800 mg PO Q8HP PRN (Reason: pain) RF: 0 oxycodone 5 mg Tablet 5 mg PO Q4-6H PRN (Reason: Pain (Scale Score 1-3)) RF: 0 Follow up/Referrals: Misa Headley MD [Physician] - 01/22/18 2:40 pm (Follow up with Scooter Holden PA-C at the [facility] Bennett Ramirez MD [Primary Care Provider] - Provider Discharge Instructions Diet: Diet as Tolerated Activity: Weightbearing as tolerated, no twisting/bending, or lifting greater than 5 lbs. Use walker to ambulate. Cold/Heat Therapy: Apply ice for 20 minutes at a time to surgical site at least hourly while awake. Skin/Wound/Dressing Care Report to your healthcare provider any signs of infection, such as:: chills, fever, night sweats, increased pain and unusual drainage Dressing: Keep dressing clean, dry, and intact. May shower with dressing in place. Visit Report/Discharge Packet Instructions: DI for Transforaminal Lumbar Interbody Fusion Visit Report Forms: Stroke Signs & Symptoms Discharge Data Primary Care Provider: Bennett Ramirez Attending Provider: Misa Headley Admit Date/Time: 01/10/18 06:22 Quality VTE Deep Vein Thrombosis/Pulmonary Embolism Present on Admission: No
[2018-01-13] MEDS: VENLAFAXINE ER 75 MG CAP 150 MG PO (08:22)
[2018-01-13] MEDS: GABAPENTIN 300 MG CAPSULE PO (08:22)
[2018-01-13] MEDS: hydroCHLOROthiazide 25 MG TABLET PO (08:22)
[2018-01-13] MEDS: LOSARTAN 50 MG TABLET PO (08:23)
[2018-01-13] MEDS: LORATADINE 10 MG TABLET PO (08:23)
[2018-01-13] MEDS: DOCUSATE 100 MG CAPSULE PO (08:23)
--- NOTE | 2018-01-13 10:06 | PT.IPTN ---
Current Diagnoses Other spondylosis with radiculopathy, lumbar region (01/10/18) Spinal stenosis, lumbar region without neurogenic claudication (01/10/18) Intervertebral disc disorders with radiculopathy, lumbar region (01/10/18) Arthrodesis status (01/10/18) Surgery Performed Operation Date: 01/10/18 07:45 Actual Procedures p L5-S1 HWR, L4-5 TLIF, L4-5; L5-S1 PSF w/ Instrumentation - Misa Headley MD Physical Therapy Treatment Note M2 PT-IP Current Condition Start: 01/10/18 16:17 Freq: NEEDED Status: Active Protocol: Document 01/11/18 09:32 MDD (Rec: 01/11/18 11:03 MDD [id number]) Physical Therapy Current Condition Current Condition Evaluation Date 01/11/18 Treatment Diagnosis s/p L4-5, L5-S1 TLIF Onset Date 01/10/18 Precautions Lumbar Precautions Log Roll No Twisting Limit Bending Lifting Restriction of 10 lbs Gait Belt above Incisional Area Other Precautions blunt catheter Weight Bearing Status Weight Bearing Status Weight Bear as Tolerated M3 PT-IP Subjective Start: 01/10/18 16:17 Freq: NEEDED Status: Active Protocol: Document 01/13/18 10:06 AB (Rec: 01/13/18 11:52 AB [id number]) Subjective Physical Therapy Visit Type Type Treatment Note Visit Start Time 10:06 Visit Stop Time 10:26 Total Visit Minutes 20 Number of ANIMAL TECH Visits 0 Physical Therapy Visit Comments Patient Comments I am ready for my walk Therapy Pain Assessment Pain When Pain Assessed At Rest Pain Present Pain Present Pain Reported Location Back Intensity 6 Scale Used Numeric (1 - 10) Pain Management Techniques Timing of Activity with Medications M4 PT-IP Mobility and Gait Start: 01/10/18 16:17 Freq: NEEDED Status: Active Protocol: Document 01/13/18 10:06 AB (Rec: 01/13/18 11:52 AB [id number]) PT-Bed Mobility Assessment Sit to Supine Sit to Supine Minimal Assistance Scooting Scooting to Edge of Bed Standby Assistance PT-Transfer Assessment Sit to and From Stand Sit to and from Stand Standby Assistance Equipment Transfer Assistive Device Gait Belt Front Wheeled Walker Orthotic/Prosthetic Devices or Brace: No Transfers Transfer Destination Toilet Transfer Technique pt ambulated to the toilet using FWW Transfer Ability Level of Assist Standby Assistance Gait Assessment Gait Gait Assistance Required: Standby Assistance Distance (Feet) (feet) 250 Able to Maintain Weight Bearing Status Yes During Gait Assistive Devices Assistive Device Gait Belt Front Wheeled Walker Orthotic/Prosthetic Devices or Brace: No Gait Deviations General Gait Pattern Decreased Stride Length Decreased Feet Clearance Factors Limiting Gait Function Factors Limiting Gait Function Decreased Activity Tolerance Decreased Strength Pain Poor Balance Stair Climbing Assessment Evaluation Level of Assist On Stairs Standby Assistance Contact Guard Assistance Devices Stair Climbing Assistive Devices Large Base Quad Cane Technique/Endurance Stair Climbing Direction Ascend and Descend Stair Climbing Technique Step to Step Number of Steps Climbed 3 Query Text: Stair Climbing Set # Repetitions (reps) 1 M5 PT-IP Objective Assessments Start: 01/10/18 16:17 Freq: NEEDED Status: Active Protocol: Document 01/11/18 09:32 MDD (Rec: 01/11/18 11:03 MDD [id number]) Orientation Orientation/Cognition Level of Alertness Alert Orientation Name Age Birthday Month Date Year Day of Week Place Situation Language Function Ability No Deficits Noted Safety Awareness Understands Safety Issues Memory Description No Deficits Noted Gross Range of Motion Lower Extremity ROM Assessment Within Functional Limits Strength Lower Extremity Strength Assessment Within Functional Limits Sensation Assessment Sensation Gross Sensation WNL Light Touch Intact M6 PT-IP Treatment Start: 01/10/18 16:17 Freq: NEEDED Status: Active Protocol: Document 01/13/18 10:06 AB (Rec: 01/13/18 11:52 AB [id number]) Physical Therapy Treatment Education Education Provided Safety M7 PT-IP Assessment and Plan Start: 01/10/18 16:17 Freq: NEEDED Status: Active Protocol: Document 01/13/18 10:06 AB (Rec: 01/13/18 11:52 AB [id number]) PT Summary Assessment and Plan Potential Rehabilitation Potential Good Summary Impairments Pain Strength Balance Bed Mobility Transfers Gait Activity Tolerance Progress Towards Goals Progressing Toward Goals Assessment Summary pt progressing well with mobility. pt plans to go home this afternoon with family to assist her. Goals Bed Mobility Goal Independent Transfer Goal Independent Gait Goal Independent Gait Distance 150 Other Goals Ascend/descend 2 steps using quad cane SBA Days to Meet Goals 3 Frequency of Treatment Frequency Of Treatment Twice a Day Treatment Plan Physical Therapy Treatment Plan Bed Mobility Training Transfer Training Gait Training Therapeutic Exercise Post Op Education Recommendations To Nursing Amount of Assist Needed Standby Assistance Discharge Recommendations PT Discharge Recommendations Home with Assistance
--- NOTE | 2018-01-13 15:51 | PC.NURSE ---
Discharge: Feels ready to d/c home. Seen by PT/OT and given their final instructions. RX given. Seen by PA and questions answered. Has rx. Took a shower. Dressing changed to low back to a cover site and 1 extra dressing given in case she has a need prior to getting her own. Reviewed information on her back surgery and constipation. Questions answered. Feels ready to d/c home. Pt d/c home via auto w/spouse.
== END 2018-01-13 13:20 | disposition home or self-care (01) | DRG 454 ==
PROVIDERS: Admitting Provider Orthopaedic Surgery Orthopaedic Surgery of the Spine; Family Provider Family Medicine; PCP Family Medicine; Visit Provider Orthopaedic Surgery Orthopaedic Surgery of the Spine
PROC: 0SG00AJ Fusion of Lumbar Vertebral Joint with Interbody Fusion Device, Posterior Approach, Anterior Column, Open Approach (ICD-10-PCS; principal; 2018-01-10 07:45)
DX: M47.26 Other spondylosis with radiculopathy, lumbar region (principal); M96.0 Pseudarthrosis after fusion or arthrodesis; M48.061 Spinal stenosis, lumbar region without neurogenic claudication; Z87.891 Personal history of nicotine dependence; I10 Essential (primary) hypertension; K21.9 Gastro-esophageal reflux disease without esophagitis; E11.9 Type 2 diabetes mellitus without complications; M48.07 Spinal stenosis, lumbosacral region; M47.27 Other spondylosis with radiculopathy, lumbosacral region
CPT/HCPCS: 36415; 72100; 76001; 85014; 85018; 94762; 97116; 97161; 97165; 97530; C1776; C9290; J0330; J1100; J1170; J2060; J2250; J2405; J2704; J3010

== ENCOUNTER → 2019-07-28 08:33 | Outpatient (CLI) | payer OTHER, MEDICAID, SELFPAY ==
[2018-01-10 07:27] VITALS: BMI 32.7
--- NOTE | 2019-07-28 | DI.MRI.S_ITS ---
PROCEDURE: MR LUMBAR SPINE WO CON INDICATIONS: Unspecified fracture of unspecified lumbar vertebr TECHNIQUE: Noncontrast sagittal T1 spin echo and T2 fast echo, sagittal STIR, axial T1 and T2 fast spin echo through the lumbar spine. In cases with scoliosis, additional coronal T2 fast spin echo may be performed. COMPARISON: [facility], MR, MR LUMBAR SPINE WITHOUT CONTRAST, 07/27/2017, 15:47. [facility], CR, XR LUMBAR SPINE 2 OR 3 VIEWS, 03/05/2019, 8:27. FINDINGS: Image quality: Excellent. Alignment and Curvature: 5 lumbar-type vertebral body are present by plain film. There is mild grade 1 retrolisthesis of L2 on L3 and L3 on L4. Bone Marrow: Marrow is of normal overall signal. No acute vertebral body compression fractures. There is fusion hardware at L4-S1, new since the prior examination. Spinal Cord: Conus medullaris terminates at the upper L1 level. Visualized cord demonstrates normal signal and size. Paraspinous Soft Tissues: No paravertebral masses. Low T2 intensity foci within the gallbladder lumen are present. L1-L2: Normal appearance. L2-L3: Mild disc height loss and desiccation. Mild diffuse disc bulge. Mild facet and ligament flavum hypertrophy. Mild epidural lipomatosis. Mild canal stenosis. Mild bilateral foraminal stenosis. No change. L3-L4: Mild disc height loss and desiccation. Mild diffuse disc bulge. Mild facet and ligament flavum hypertrophy. Mild epidural lipomatosis. Mild canal stenosis. Mild bilateral foraminal stenosis. L4-L5: Status post fusion. Mild residual disc osteophyte complex. Mild bilateral facet hypertrophy. No significant canal stenosis. Mild bilateral foraminal stenosis. L5-S1: Status post fusion. Mild residual disc osteophyte complex. Mild bilateral facet hypertrophy. No canal stenosis. Mild bilateral foraminal stenosis. IMPRESSION: 1. L4-S1 fusion, with no significant canal, nor foraminal stenosis at the fused levels. 2. Multilevel degenerative disc and facet disease, causing mild multilevel canal and foraminal stenoses. No neural impingement. 3. Cholelithiasis. Dictated by: Mikael Veliz M.D. on 07/29/2019 at 15:40 Approved by: Mikael Veliz M.D. on 07/29/2019 at 15:47
== END ==
PROVIDERS: Family Provider Family Medicine; PCP Family Medicine; Referring Provider Physician Assistant; Visit Provider Physician Assistant
DX: S32.009K Unspecified fracture of unspecified lumbar vertebra, subsequent encounter for fracture with nonunion (principal); M51.36 Other intervertebral disc degeneration, lumbar region; M48.061 Spinal stenosis, lumbar region without neurogenic claudication; K80.20 Calculus of gallbladder without cholecystitis without obstruction; Z98.1 Arthrodesis status
CPT/HCPCS: 72148

== ENCOUNTER → 2021-01-20 09:46 | Outpatient (CLI) | payer OTHER, MEDICAID, SELFPAY ==
[2018-01-10 07:27] VITALS: BMI 32.7
[2021-01-20 11:38] LABS: COVID19 -Nasal RAPID Negative (Negative)
== END ==
PROVIDERS: Family Provider Family Medicine; PCP Family Medicine; Visit Provider Physician Assistant
DX: Z20.822 Contact with and (suspected) exposure to COVID-19 (principal)
CPT/HCPCS: 87635; C9803

== ENCOUNTER 2021-01-21 06:35 | Inpatient (IN) | payer OTHER, MEDICAID, SELFPAY ==
[2018-01-10 07:27] VITALS: BMI 32.7
[2021-01-15 13:21] VITALS: BMI 37.0
[2021-01-21] VITALS (18 sets, daily range): BP systolic 112–150; BP diastolic 54–112; PULSE 75–120; RESP 9–17; TEMP 36–37.2; O2SAT 90–100; BMI 38.0
[2021-01-21] MEDS: CELECOXIB 200 MG CAPSULE PO (07:15)
[2021-01-21] MEDS: ACETAMINOPHEN 325 MG TABLET 975 MG PO (07:15)
[2021-01-21] MEDS: SCOPOLAMINE 1 PATCH TOP (07:15)
[2021-01-21] MEDS: PREGABALIN 75 MG CAPSULE PO (07:15)
[2021-01-21] MEDS: LACTATED RINGERS 1,000 ML 42 ML IV ×2 (07:16→09:47)
--- NOTE | 2021-01-21 07:38 | PM.PREOP ---
Pre-operative Note COVID-19 COVID-19 status: Negative Result date/Date tested (Pos, Neg/Pending): 01/20/21 Interval Note History & Physical reviewed/Exam performed by Physician: Yes Changes to H&P: No H&P completed within 30 days and has changed as indicated here:: Plan for L TKA and right knee steroid injection
[2021-01-21] MEDS: CEFAZOLIN 1 GM VIAL 2 GM IV (07:54)
[2021-01-21] MEDS: TRANEXAMIC ACID 1,000 MG VIAL 1000 MG INJ ×2 (07:58→09:14)
[2021-01-21] MEDS: TRIAMCINOLONE 40 MG/ML VIAL IM (07:59)
[2021-01-21] MEDS: BUPIVACAINE 0.5% (PF) VIAL 30 ML INJ (07:59)
--- NOTE | 2021-01-21 08:25 | SUR.OPER ---
Supine on padded OR bed. Pillow under head, arms secured on padded armboards <90 degree abduction. Safety belt across torso. Non-operative leg secured with tape over blanket over lower leg. Operative leg secured in Nathe positioner.
[2021-01-21] MEDS: MORPHINE 4 MG/ML INJ INJ (08:34)
[2021-01-21] MEDS: KETOROLAC 30 MG/ML VIAL IV (08:34)
[2021-01-21] MEDS: ROPIVACAINE 0.5% PF 5 MG/ML 20ML VIAL 60 ML INJ (08:34)
--- NOTE | 2021-01-21 09:57 | P.OP_ITS ---
Operative Date/Time/Diagnoses Date of procedure: 01/21/21 Time of procedure: 09:57 Pre-op diagnosis: left knee OA, right knee OA Post-op diagnosis: same Procedure & Clinicians Procedure: Left total knee arthroplasty; right knee intra-articular steroid injection Same procedure as scheduled: Yes Indications: Bilateral knee osteoarthritis. Left knee osteoarthrosis resistance further conservative measures Surgeon: Andrea Serrato Cardroom Manager: Silvia Oakley Walker Click Yes if Unassisted: No Anesthesia Type: General Operative Notes Findings: Left knee osteoarthritis with [id number] articulation of the medial compartment overall varus aligned Closure Type: primary Prosthetic devices, grafts, tissues, transplants, or devices: Anderson and nephew Journey 2 CR Oxinium femoral component size 5, left Journey tibial base plate size 4, left Size 3-4, left 10 mm thick Journey 2 XLPE deep dish articular insert 32 mm oval Kaylee 2 patellar button Estimated Blood Loss (mL): 200 Tourniquet time (min): 17 Procedure in detail: Patient was met in the preoperative holding area where the site and side of surgery marked by . Informed consent been reviewed and signed in clinic but was modified in the preoperative holding area to include a right knee steroid injection. After discussion of the risks and benefits of this addition patient agrees and has initialed her name next this addendum. Patient was then brought back in the operating room placed on the operating room table induced under general anesthesia. A nonsterile tourniquet was then placed on left thigh. At this point a surgical time-out was performed verifying the site and side of surgery as well as the name of the patient. The superolateral aspect of the right knee was then prepped and a 25 gauge needle was inserted into the knee and 1 cc of Kenalog was injected into the knee with a combination of 3 cc of 0.5% bupivacaine knee was then removed and a bandage was placed. The left lower extremity then prepped and draped in normal sterile fashion. An Esmarch was used to exsanguinate the left lower extremity. The tourniquet was then inflated to turned 50 mmHg. A longitudinal incision was made over the anterior aspect of the knee and 10. Blade was used to elevate medial lateral flaps. The medial patellar arthrotomy was then marked out and made. At this point was noted that we had a venous tourniquet we tried inflated tourniquet to 300 mmHg but this did not solve the issue. The tourniquet was then let down at 9 minutes of time. Medial peel was then performed Hoffa's fat pad was then removed the lateral meniscus was then removed as well as the ACL remnant. Armando's line was then marked using electrocautery as well as the drill entry site the femur and tibia. Drill was then used to enter the femur and tibia respectively. Intramedullary darcie was then placed into the femur. The distal femoral cutting jig was then pinned in neutral slot and cut the neutral slot. Then turned my attention to the tibia intramedullary out of place inside the tibia with outrigger for the tibial cutting jig this was then pinned into place and verify line with a drop darcie. This cut was then made and the tibial cut was then removed. The knee was then brought into full extension and 9 mm extension block fit in the space and was balanced. This point we then brought the knee into flexion removed the pins and placed the gap manufacturing assistant. A gap manufacturing assistant was then expanded to 9 mm of thickness and the drill holes were then drilled. This was then removed and the Sizer was placed and the femur sized to a size 5. The 5 in 1 cutting block was then pinned into place and all 5 cuts were made sequentially. Cutting block was removed the bony fragments were preserved a size 5 trial femur was then placed and the notch cut was then made. A size 4 tibial base plate with a 9 mm thick CR polyethylene was then placed the knee was brought through range of motion she reached full extension and deep flexion. Knee stable to varus and valgus stress. At this point the knee was brought into 45? of flexion and the patella was cut using a freehand technique it was sized at 32 mm patellar button this was then drilled and trial was placed knee brought through range of motion with good patellar tracking. Th the lug holes were then drilled. The tibia was marked using a floating technique. Trial components were then removed the tibial base plate was then returned and the keel was then drilled and punched. Bone fractures then placed inside the keel hole and the keel was replenished. Femoral bone plug was then placed. This point local anesthetic was infiltrated in the periarticular soft tissues including the back of the knee. We then used Esmarch to exsanguinate the lower extremity and inflated the tourniquet to 3 and 50 mmHg. Pulse lavage was then used to thoroughly irrigate the cut surface of the tibia femur and patella. The surfaces were then dried. Cement was then mixed cement was then finger packed on the cut surface of the tibia as well as on the undersurface of the tibial base plate this then malleted into place and excess cement was removed. Cement was then finger packed on the cut surface of the femur with exception of the posterior condylar cut cement was placed on the feet of the femur component and this was malleted into place excess cement was removed a 9 mm thick trial polyethylene was then placed the knee was brought into full extension ankles held in internal rotation. Cement was then finger packed on the cut surface of the patella and between the patellar pegs this was then clamped in place and exc ess cement was removed Betadine solution was then placed in the wound tourniquet was let down at another 8 minutes of time. The cement was allowed to fully cure prior to any further manipulation to the knee. Once this was completed the knee was then lavaged with copious normal saline knee was brought through range of motion I then trialed with a 10 mm thick polyethylene which had slightly better stability a 10 mm thick deep dish polyethylene was then selected and this was then placed. Making sure that the medial lateral tabs were well engaged. The medial parapatellar arthrotomy was then closed using 1. Vicryl interrupted fashion followed by running Quill suture followed by running 1. Vicryl in the fat layer followed by 2-0 Vicryl in the subcutaneous layer in interrupted fashion followed by running 3-0 Stratafix. Max dressing was then placed. Post-operative Condition: stable Disposition: PACU Plan for aftercare: 24 hours postop antibiotics, aspirin 81 mg b.i.d. for 6 weeks for DVT prophylaxis, weight-bearing as tolerated left lower extremity.
[2021-01-21] MEDS: fentaNYL 100 MCG/2 ML INJ IV (10:24)
[2021-01-21] MEDS: HYDROMORPHONE 2 MG INJ IV ×3 (10:33→10:46)
[2021-01-21] MEDS: OXYCODONE IR 5 MG TABLET PO ×3 (10:46→16:11)
--- NOTE | 2021-01-21 11:00 | DI.RAD.S_ITS ---
PROCEDURE: XR KNEE LT 1TO2V INDICATIONS: LEFT TOTAL KNEE TECHNIQUE: 2 view(s) of the knee acquired. COMPARISON: None. FINDINGS: Bones: Patient is status post knee joint arthroplasty. Hardware components are in expected positions. Visualized bony structures are intact. Soft tissues: Overlying postoperative changes are noted. IMPRESSION: Postop changes from left total knee arthroplasty with anatomic alignment. Dictated by: Dorian Wei M.D. on 01/21/2021 at 12:44 Approved by: Dorian Wei M.D. on 01/21/2021 at 12:44
--- NOTE | 2021-01-21 11:22 | SUR.PHASEI ---
Patient transferred to room 202 by Divine STERN in bed on 2L of oxygen with belongings. SBAR report called to Lennox STERN.
[2021-01-21] MEDS: LACTATED RINGERS 1,000 ML 100 ML IV ×2 (11:30→22:20)
[2021-01-21] MEDS: IBUPROFEN 400 MG TABLET PO ×3 (13:17→19:37)
[2021-01-21] MEDS: ACETAMINOPHEN 325 MG TABLET 650 MG PO ×2 (14:27→19:36)
[2021-01-21] MEDS: OXYCODONE IR 10 MG TABLET PO ×3 (14:28→22:11)
[2021-01-21] MEDS: GABAPENTIN 300 MG CAPSULE PO ×2 (14:28→19:36)
--- NOTE | 2021-01-21 15:15 | PT.IIE ---
Current Diagnoses Unilateral primary osteoarthritis, left knee (01/21/21) Surgery Performed Operation Date: 01/21/21 07:45 Actual Procedures p Total Knee Arthroplasty & injection on the right knee(Left) - Andrea Serrato MD Medical History (Last Updated 12/21/17 @ 14:52 by Karena Waldron RN) Acne Back pain Chronic sinusitis Depression Easy bruisability Endometriosis GERD (gastroesophageal reflux disease) H/O ETOH abuse HTN (hypertension) Left hip pain Migraines Noncompliance Numbness Pneumonia Thyroid nodule Physical Therapy Inpatient Evaluation/Re-Eval M1 PT/OT-IP Prior Functional Status Start: 01/21/21 16:26 Freq: NEEDED Status: Active Protocol: Document 01/21/21 15:15 AB (Rec: 01/21/21 16:38 AB [email or web address]) Medical Review Prior Functional Status Medical History Reviewed Yes Communication able to make needs known Mobility and Gait pt stated that she is independent with all mobilities and ambulation without AD Social History Household Members spouse,children Living Arrangements House Number of Floors (Floors) One Floor Number of Stairs To Enter/Railing? 2 steps to enter without rails Home Environment High Toilet,Walk in Shower Home Equipment Front Wheel Walker,Straight Cane,Shower Seat without Backrest,Hand Held Shower,Grab Bars In Shower Additional Social History Comment spouse will assist over the weekend and pt's mom will stay to assist pt until monday but can stay longer if needed pt stated that she will sleep on her recliner upon d/c M2 PT-IP Current Condition Start: 01/21/21 16:26 Freq: NEEDED Status: Active Protocol: Document 01/21/21 15:15 AB (Rec: 01/21/21 16:38 AB [email or web address]) Physical Therapy Current Condition Current Condition Evaluation Date 01/21/21 Treatment Diagnosis s/p L TKA; difficulty in walking Onset Date 01/21/21 Weight Bearing Status Weight Bearing Status Weight Bear as Tolerated Allowed Weight Bearing Amount (enter % LLE WBAT or #) (%) M3 PT-IP Subjective Start: 01/21/21 16:26 Freq: NEEDED Status: Active Protocol: Document 01/21/21 15:15 AB (Rec: 01/21/21 16:38 AB [email or web address]) Subjective Physical Therapy Visit Type Type Initial Evaluation Visit Start Time 15:15 Visit Stop Time 16:15 Total Visit Minutes 60 Number of SUPERVISOR BOILER REPAIR Visits 0 Physical Therapy Visit Comments Patient Comments pt is agreeable to do PT; requested to use the toilet Therapy Pain Assessment Pain When Pain Assessed At Rest Pain Present Pain Present Pain Reported Location left knee Intensity 4 Scale Used increases to 8/10 with mobility Pain Management Techniques Apply Cold,Distraction, Elevation,Modification of Treatment,Re-positioning, Timing of Activity with Medications M4 PT-IP Mobility and Gait Start: 01/21/21 16:26 Freq: NEEDED Status: Active Protocol: Document 01/21/21 15:15 AB (Rec: 01/21/21 16:38 AB [id number]) PT-Bed Mobility Assessment Supine to Sit Supine to Sit Maximum Assistance,1 Person Assistance PT-Transfer Assessment Sit to and From Stand Sit to and from Stand Maximum Assistance,2 Person Assistance,Use of Upper Extremities Equipment Transfer Assistive Device Gait Belt,Front Wheeled Walker Orthotic/Prosthetic Devices or Brace: No Transfers Transfer Destination Bedside Commode Transfer Technique Stand Step Pivot Transfer Ability Level of Assist Maximum Assistance,2 Person Assistance,Use of Upper Extremities Comments Mobility Comments completed bed mobility supine to sit max A and max cues. c/ o increase pain. BP 144/73 in sitting. requested to use the toilet. completed sit to stand max A x 2 with 2 attempts. completed step transfer using FWW max A x 2 and max cues for L quads activation. slight L knee buckling requiring stabilization by PT. completed sit to stand from the commode max A x 1-2 and max cues. able to maintain standing using FWW mod A while NAC assisted with hygiene care. step transfer back to bed per pt's request using FWW max A x 1-2 and max cues. completed bed mobility sit to supine max A and max cues. positioned pt in bed. call light and table placed within reach. PT-Balance Assessment Sitting Balance and Reactions Static Sitting Balance Ability Good Dynamic Sitting Balance Ability Good Standing Balance and Reactions Static Standing Balance Ability Poor Dynamic Standing Balance Ability Poor Device Used FWW M5 PT-IP Objective Assessments Start: 01/21/21 16:26 Freq: NEEDED Status: Active Protocol: Document 01/21/21 15:15 AB (Rec: 01/21/21 16:38 AB [email or web address]) Orientation Orientation/Cognition Level of Alertness Alert Orientation Name,Place,Situation Language Function Ability No Deficits Noted Safety Awareness Decreased Safety Awareness Memory Description No Deficits Noted Gross Range of Motion Lower Extremity ROM Assessment Left Impaired Impairments L knee flexion: ~ 20 deg Strength Lower Extremity Strength Assessment Bilaterally Impaired Comments Strength Comments LLE: 3-/5 RLE 3+/5 Sensation Assessment Sensation Gross Sensation WNL Muscle Tone Muscle Tone WNL Yes M6 PT-IP Treatment Start: 01/21/21 16:26 Freq: NEEDED Status: Active Protocol: Document 01/21/21 15:15 AB (Rec: 01/21/21 16:38 AB [email or web address]) Physical Therapy Treatment Exercises Exercises Heel Slides Education Education Provided Precautions,Weight Bearing Status,Post-Op Packet,Safety M7 PT-IP Assessment and Plan Start: 01/21/21 16:26 Freq: NEEDED Status: Active Protocol: Document 01/21/21 15:15 AB (Rec: 01/21/21 16:38 AB [email or web address]) PT Summary Assessment and Plan Potential Rehabilitation Potential Good Status of Condition at Evaluation Evolving Summary Impairments Pain,ROM,Strength,Balance, Coordination,Sensation,Tone, Cognition,Bed Mobility, Transfers,Gait,Activity Tolerance Assessment Summary pt requiring max A x 1-2 with mobility and unable to ambulate at this time due to c /o pain on LLE with slight buckling on L knee during standing. d/c plan depending on progress. will conduct caregiver training when appropriate and stair climbing training prior to d/c. will continue to assess progress. Goals Bed Mobility Goal Standby Assistance Transfer Goal Standby Assistance,Front Wheeled Walker Gait Goal Standby Assistance,Front Wheel Walker Gait Distance 150 Other Goals up/down 2 steps using SPC/WEATHERSTRIP MACHINE OPERATOR min A Days to Meet Goals 5 Frequency of Treatment Frequency Of Treatment Twice a Day Treatment Plan Physical Therapy Treatment Plan Bed Mobility Training,Transfer Training,Gait Training, Therapeutic Exercise,Balance Retraining,Post Op Education, Discharge Planning,Hot or Cold Pack,Neuromuscular Re-ed, Coordination Retraining,Manual Therapy Precautions Other Precautions LLE WBAT Recommendations To Nursing Amount of Assist Needed 2 Person Assist Discharge Recommendations PT Discharge Recommendations Home with Assistance, Outpatient PT Transportation Needs at Discharge Private Vehicle
[2021-01-21] MEDS: HYDROMORPHONE 0.5 MG INJ 0.2 MG IV ×3 (16:17→23:49)
[2021-01-21] MEDS: CEFAZOLIN 1 GM VIAL 3 GM (16:39)
[2021-01-21] MEDS: CEFAZOLIN VIAL 3 GM in SODIUM CHLORIDE 0.9% 100 ML 200 ML IV ×2 (17:30→23:50)
[2021-01-21] MEDS: CYCLOBENZAPRINE 10 MG TABLET PO (22:11)
[2021-01-21] MEDS: ASPIRIN EC 81 MG TABLET PO (22:11)
[2021-01-21] MEDS: DOCUSATE 100 MG CAPSULE PO (22:11)
[2021-01-21] MEDS: SPIRONOLACTONE 25 MG TABLET 50 MG PO (22:11)
[2021-01-21] MEDS: hydrOXYzine pamoate 25 MG CAPSULE PO (23:50)
[2021-01-22] VITALS (7 sets, daily range): BP systolic 101–145; BP diastolic 54–73; PULSE 67–100; RESP 14–18; TEMP 36.2–37; O2SAT 97–99
[2021-01-22] MEDS: IBUPROFEN 400 MG TABLET PO ×6 (01:18→20:38)
[2021-01-22] MEDS: HYDROMORPHONE 0.5 MG INJ 0.2 MG IV ×5 (01:18→17:22)
[2021-01-22] MEDS: hydrOXYzine pamoate 25 MG CAPSULE PO ×3 (04:06→14:15)
[2021-01-22] MEDS: OXYCODONE IR 10 MG TABLET PO ×6 (04:06→20:38)
[2021-01-22] MEDS: GABAPENTIN 300 MG CAPSULE PO ×3 (07:54→20:38)
[2021-01-22] MEDS: ACETAMINOPHEN 325 MG TABLET 650 MG PO ×3 (08:00→20:38)
[2021-01-22] MEDS: ASPIRIN EC 81 MG TABLET PO ×2 (08:00→20:38)
[2021-01-22] MEDS: DOCUSATE 100 MG CAPSULE PO ×2 (08:01→20:38)
[2021-01-22] MEDS: LOSARTAN 25 MG TABLET 50 MG PO (08:18)
[2021-01-22] MEDS: hydroCHLOROthiazide 25 MG TABLET PO (08:19)
[2021-01-22] MEDS: VENLAFAXINE ER 75 MG CAP 150 MG PO (08:19)
[2021-01-22] MEDS: LORATADINE 10 MG TABLET PO (08:19)
--- NOTE | 2021-01-22 09:18 | PT.IPTN ---
Current Diagnoses Unilateral primary osteoarthritis, left knee (01/21/21) Surgery Performed Operation Date: 01/21/21 07:45 Actual Procedures p Total Knee Arthroplasty & injection on the right knee(Left) - Andrea Serrato MD Physical Therapy Treatment Note M2 PT-IP Current Condition Start: 01/21/21 16:26 Freq: NEEDED Status: Active Protocol: Document 01/22/21 09:29 MA (Rec: 01/22/21 09:40 MA [email or web address]) Physical Therapy Current Condition Current Condition Evaluation Date 01/21/21 Treatment Diagnosis s/p L TKA; difficulty in walking Onset Date 01/21/21 Precautions Other Precautions LLE WBAT Weight Bearing Status Weight Bearing Status Weight Bear as Tolerated Allowed Weight Bearing Amount (enter % LLE WBAT or #) (%) M3 PT-IP Subjective Start: 01/21/21 16:26 Freq: NEEDED Status: Active Protocol: Document 01/22/21 09:29 MA (Rec: 01/22/21 09:40 MA [email or web address]) Subjective Physical Therapy Visit Type Type Treatment Note Visit Start Time 08:58 Visit Stop Time 09:18 Total Visit Minutes 20 Number of 911 EMERGENCY DISPATCHER Visits 1 Physical Therapy Visit Comments Patient Comments Pt is agreeable to PT but states she did not sleep well last night and is in a lot of pain Therapy Pain Assessment Pain When Pain Assessed During Mobility Pain Present Pain Present Pain Reported Location left knee Intensity 8 Scale Used Numeric (0 - 10) Pain Management Techniques Apply Cold,Distraction, Elevation,Modification of Treatment,Re-positioning, Timing of Activity with Medications M4 PT-IP Mobility and Gait Start: 01/21/21 16:26 Freq: NEEDED Status: Active Protocol: Document 01/22/21 09:29 MA (Rec: 01/22/21 09:40 MA [email or web address]) PT-Bed Mobility Assessment Supine to Sit Supine to Sit Moderate Assistance,1 Person Assistance Scooting Scooting to Edge of Bed Moderate Assistance PT-Transfer Assessment Sit to and From Stand Sit to and from Stand Maximum Assistance,2 Person Assistance,Use of Upper Extremities Equipment Transfer Assistive Device Gait Belt,Front Wheeled Walker Orthotic/Prosthetic Devices or Brace: No Transfers Transfer Destination Chair Transfer Technique Stand Step Pivot Transfer Ability Level of Assist Maximum Assistance,2 Person Assistance,Use of Upper Extremities Comments Mobility Comments Pt was able to complete bed mobility Mod Ax1 with instructions on using gait belt to assist moving LLE to EOB. Once seated she required Mod A to scoot to EOB with LLE raised off floor. She was Max Ax2 for Sit<>stands with cues to keep LLE extended due to pain and reduced ROM and to use UEs to push from bed/chair . Pt performed one stand from raised bed and one stand from room chair. Gait Assessment Gait Gait Assistance Required: Moderate Assistance,1 Person Assist Distance (Feet) 5 Able to Maintain Weight Bearing Status Yes During Gait Comments Gait Comments Pt was able to walk a few feet fwd, toe-touch WB on LLE with heavy use of UEs on FWW before c/o increased pain and requesting to sit. Stair Climbing Assessment Comments Stair Climbing Comments Did not assess this session PT-Balance Assessment Sitting Balance and Reactions Static Sitting Balance Ability Good Dynamic Sitting Balance Ability Good Standing Balance and Reactions Static Standing Balance Ability Poor Dynamic Standing Balance Ability Poor Device Used FWW M5 PT-IP Objective Assessments Start: 01/21/21 16:26 Freq: NEEDED Status: Active Protocol: Document 01/21/21 15:15 AB (Rec: 01/21/21 16:38 AB [email or web address]) Orientation Orientation/Cognition Level of Alertness Alert Orientation Name,Place,Situation Language Function Ability No Deficits Noted Safety Awareness Decreased Safety Awareness Memory Description No Deficits Noted Gross Range of Motion Lower Extremity ROM Assessment Left Impaired Impairments L knee flexion: ~ 20 deg Strength Lower Extremity Strength Assessment Bilaterally Impaired Comments Strength Comments LLE: 3-/5 RLE 3+/5 Sensation Assessment Sensation Gross Sensation WNL Muscle Tone Muscle Tone WNL Yes M6 PT-IP Treatment Start: 01/21/21 16:26 Freq: NEEDED Status: Active Protocol: Document 01/22/21 09:29 MA (Rec: 01/22/21 09:40 MA [email or web address]) Physical Therapy Treatment Exercises Exercises Ankle Pumps,Straight Leg Raises Education Education Provided Precautions,Weight Bearing Status,Post-Op Packet,Safety Other Treatments Other Treatment Performed Educated pt on using gait belt to assist in SLR and importance of using ice to decrease swelling and pain. M7 PT-IP Assessment and Plan Start: 01/21/21 16:26 Freq: NEEDED Status: Active Protocol: Document 01/22/21 09:29 MA (Rec: 01/22/21 09:40 MA [email or web address]) PT Summary Assessment and Plan Potential Rehabilitation Potential Good Status of Condition at Evaluation Evolving Summary Impairments Pain,ROM,Strength,Balance, Coordination,Sensation,Tone, Cognition,Bed Mobility, Transfers,Gait,Activity Tolerance Assessment Summary Pt requires less asssitance today for supine>sit when educated on using gait belt to assist LLE to EOB. She continues to need MaxAx2 for sit<>stand and is only able to walk ~5ft before c/o increased pain and requiring seated rest break. Educated pt on precautions, importance of ice for swelling, and ROM exercises using gait belt for assistance if needed. Will need to perform caregiver training and stair training prior to pt's d/c Goals Bed Mobility Goal Standby Assistance Transfer Goal Standby Assistance,Front Wheeled Walker Gait Goal Standby Assistance,Front Wheel Walker Gait Distance 150 Other Goals up/down 2 steps using SPC/DOUGH CUTTING MACHINE OPERATOR min A Days to Meet Goals 5 Frequency of Treatment Frequency Of Treatment Twice a Day Treatment Plan Physical Therapy Treatment Plan Bed Mobility Training,Transfer Training,Gait Training, Therapeutic Exercise,Balance Retraining,Post Op Education, Discharge Planning,Hot or Cold Pack,Neuromuscular Re-ed, Coordination Retraining,Manual Therapy Precautions Other Precautions LLE WBAT Recommendations To Nursing Amount of Assist Needed 1 Person Assist Discharge Recommendations PT Discharge Recommendations Home with Assistance, Outpatient PT Transportation Needs at Discharge Private Vehicle
[2021-01-22] MEDS: ONDANSETRON 4 MG/2 ML INJ IV (10:06)
--- NOTE | 2021-01-22 10:34 | PM.PNPO.1 ---
Subjective Subjective Date Patient Seen: 01/22/21 Time Patient Seen: 07:35 Interval history: Patient states she is doing well overall but reports moderate pain levels. At this time she reports a 6/10 pain intensity. Patient denies fever, chills, nausea, chest pain, shortness of breath, or urinary retention. Exam Vital Signs (past 8 hours): - 01/22/21 04:00 01/22/21 07:59 01/22/21 08:18 Temperature 98.6 F 97.9 F Pulse Rate 67 91 H 90 Respiratory Rate 16 16 Blood Pressure 129/60 135/65 135/65 Pulse Oximetry 98 98 Oxygen Delivery Method Room Air Oxygen Flow Rate 0 Narrative Exam Narrative: 50-year-old female postop day 1 status post left total knee arthroplasty. Patient is resting comfortably in bed, is in no acute distress, and is alert and oriented x3. Skin is warm and dry, skin surrounding the incision site is free of erythema, warmth, induration, or discharge. Dressing over the incision site is clean, dry, and intact. Good sensation appreciated throughout the bilateral lower extremities light touch. Tenderness to palpation appreciated over the anteromedial aspect of the left thigh. Ankle dorsiflexion, plantar flexion, eversion, inversion performed bilaterally without difficulty or discomfort. DP pulses palpated bilaterally and are even. Calves are soft nontender, negative Homans sign. No other signs of DVT appreciated. Const General: cooperative and healthy appearing Resp Effort & Inspection: normal respiratory effort and able to speak in complete sentences Skin General: no rashes or lesions noted PFSH Medical History Acne Back pain Chronic sinusitis Depression Easy bruisability Endometriosis GERD (gastroesophageal reflux disease) H/O ETOH abuse HTN (hypertension) Left hip pain Migraines Noncompliance Numbness Pneumonia Thyroid nodule Surgical History H/O: hysterectomy History of carpal tunnel surgery of right wrist History of delivery History of hand surgery History of lumbar fusion Hx of sinus surgery S/P hemilaminotomy Social History household members: spouse and children Smoking Status: Former smoker alcohol intake: former Assessment & Plan Post-op Postoperative Procedures: Procedures Operation Date: 01/21/21 07:45 Actual Procedure Side Surgeon p Total Knee Arthroplasty & injection on the right knee Left Andrea Serrato MD Postoperative day: 1 Postoperative status: doing well and marginal pain control Postoperative plan: ambulate Postoperative plan narrative: Patient is to work on ambulation with the assistance of a front wheeled walker with physical therapy. Current pain management regimen is to be continued with the addition 0.2 mg of IV Dilaudid as needed for pain. Aspirin 81 mg twice daily is to be continued for DVT prophylaxis along with the assistance of sequential compression devices. We will continue to monitor patient's progress with physical therapy. Plan for discharge likely home in the next day or 2.
--- NOTE | 2021-01-22 12:50 | CM.IDA ---
Initial DCP Assessment Note Pt is a 50 yo female, resident of [place], now POD#1 from left TKA by Dr Serrato PCP: Petr Massey: Coordinated Care/[facility] Reviewed chart, pt discussed in multidisciplinary rounds this morning. Patient experiencing increased pain so according to Therapy has not been able to ambulate much s/t complaints of pain. Patient expected to return home w/family to assist and pt has planned for home, anticipate another 24 hrs for pain management and therapies and DC home tomorrow. Can discuss HH as needed. Will follow in case any DC needs or concerns arise. CHRISTINE Luna Discharge Planning/Care Management CM Discharge Assessment Start: 01/22/21 12:46 Freq: Status: Active Protocol: Document 01/22/21 12:46 FLORENCIO (Rec: 01/22/21 12:50 FLORENCIO [id number]) Discharge Planning Assessment Assigned Windows Application Administrator CHRISTINE Luna DPOA/Assigned Designee Name Petr Lawson, spouse Contact Information [phone] Advance Directives? No Advance Directives on File No History Provided By Patient,Medical Record Prior Living Arrangements House Household Members spouse,children Type of transporation used prior to Drives own vehicle admit Independent with ADL's Yes Is patient alert and oriented? Yes Patient/Family Preference OP PT Therapy Comment Pt had spinal surgery last year and went home w/family support at that time also Discharge Plan Home Transportation Arrangement Family Referrals Initiated None needed
--- NOTE | 2021-01-22 15:00 | PT.IPTN ---
Current Diagnoses Unilateral primary osteoarthritis, left knee (01/22/21) Surgery Performed Operation Date: 01/21/21 07:45 Actual Procedures p Total Knee Arthroplasty & injection on the right knee(Left) - Andrea Serrato MD Physical Therapy Treatment Note M2 PT-IP Current Condition Start: 01/21/21 16:26 Freq: NEEDED Status: Active Protocol: Document 01/22/21 09:29 MA (Rec: 01/22/21 09:40 MA [email or web address]) Physical Therapy Current Condition Current Condition Evaluation Date 01/21/21 Treatment Diagnosis s/p L TKA; difficulty in walking Onset Date 01/21/21 Precautions Other Precautions LLE WBAT Weight Bearing Status Weight Bearing Status Weight Bear as Tolerated Allowed Weight Bearing Amount (enter % LLE WBAT or #) (%) M3 PT-IP Subjective Start: 01/21/21 16:26 Freq: NEEDED Status: Active Protocol: Document 01/22/21 15:00 AB (Rec: 01/22/21 16:04 AB [id number]) Subjective Physical Therapy Visit Type Type Treatment Note Visit Start Time 15:00 Visit Stop Time 15:28 Total Visit Minutes 28 Number of TABLEAU DEVELOPER Visits 0 Physical Therapy Visit Comments Patient Comments pt is agreeable to do PT but c /o a lot of pain on L knee Therapy Pain Assessment Pain When Pain Assessed At Rest Pain Present Pain Present Pain Reported Location left knee Intensity 6 Scale Used increases >10 per pt with movement Pain Behaviors Crying,Facial Grimacing, Guarding,Holding Area,Wincing Pain Management Techniques Apply Cold,Modification of Treatment,Re-positioning, Timing of Activity with Medications M4 PT-IP Mobility and Gait Start: 01/21/21 16:26 Freq: NEEDED Status: Active Protocol: Document 01/22/21 15:00 AB (Rec: 01/22/21 16:04 AB [id number]) PT-Bed Mobility Assessment Supine to Sit Supine to Sit Maximum Assistance,1 Person Assistance,Bedrails PT-Transfer Assessment Comments Mobility Comments c/o 6/10 pain L knee at rest. completed heel slides with assist and unable to complete without assistance. PROM L knee: ~ 10 deg with increase muscle guarding, wincing. educated pt on importance of ROM on knee and pt understood. postional stretching conducted with rolled towel on L knee. tolerated ~ 3 min. L knee flexion during stretching : ~ 20 deg. pt agreed to get up and completed supine to sit max A and cues. pt c/o increase L knee pain and wants PT to support the LE in extension. pt sat on EOB for ~ 4 min and c/o increase pain with increase muscle guarding and crying due to pain. stated that she cannot stand up due to pain and wants to just go back to bed. completed sit to supine max A and max cues. positioned in bed. call light and table placed within reach. informed pt regarding current mobility and tolerance and SNF rehab recommendation at this time and pt agreed. informed counseling case manager. M5 PT-IP Objective Assessments Start: 01/21/21 16:26 Freq: NEEDED Status: Active Protocol: Document 01/21/21 15:15 AB (Rec: 01/21/21 16:38 AB [id number]) Orientation Orientation/Cognition Level of Alertness Alert Orientation Name,Place,Situation Language Function Ability No Deficits Noted Safety Awareness Decreased Safety Awareness Memory Description No Deficits Noted Gross Range of Motion Lower Extremity ROM Assessment Left Impaired Impairments L knee flexion: ~ 20 deg Strength Lower Extremity Strength Assessment Bilaterally Impaired Comments Strength Comments LLE: 3-/5 RLE 3+/5 Sensation Assessment Sensation Gross Sensation WNL Muscle Tone Muscle Tone WNL Yes M6 PT-IP Treatment Start: 01/21/21 16:26 Freq: NEEDED Status: Active Protocol: Document 01/22/21 15:00 AB (Rec: 01/22/21 16:04 AB [id number]) Physical Therapy Treatment Exercises Exercises Heel Slides Knee ROM Measurement ~20 deg with positional stretching Education Education Provided Safety M7 PT-IP Assessment and Plan Start: 01/21/21 16:26 Freq: NEEDED Status: Active Protocol: Document 01/22/21 15:00 AB (Rec: 01/22/21 16:04 AB [id number]) PT Summary Assessment and Plan Potential Rehabilitation Potential Fair Summary Impairments Pain,ROM,Strength,Balance, Coordination,Sensation,Tone, Cognition,Bed Mobility, Transfers,Gait,Activity Tolerance Progress Towards Goals Slow Progress due to Pain Assessment Summary pt continues to c/o increase L knee pain affecting mobility and activity tolerance. pt requires max A for bed mobility and was unable to stand this afternoon due to c/ o increase L knee pain. d/c plan depending on progress but at this time will require SNF rehab. Goals Bed Mobility Goal Standby Assistance Transfer Goal Standby Assistance,Front Wheeled Walker Gait Goal Standby Assistance,Front Wheel Walker Gait Distance 150 Other Goals up/down 2 steps using SPC/MANAGER FIRE min A Days to Meet Goals 5 Frequency of Treatment Frequency Of Treatment Twice a Day Treatment Plan Physical Therapy Treatment Plan Bed Mobility Training,Transfer Training,Gait Training, Therapeutic Exercise,Balance Retraining,Post Op Education, Discharge Planning,Hot or Cold Pack,Neuromuscular Re-ed, Coordination Retraining,Manual Therapy Precautions Other Precautions LLE WBAT Recommendations To Nursing Amount of Assist Needed 2 Person Assist Discharge Recommendations PT Discharge Recommendations SNF Rehab Transportation Needs at Discharge Wheelchair/Cabulance
[2021-01-22] MEDS: CYCLOBENZAPRINE 10 MG TABLET PO (16:28)
[2021-01-22] MEDS: OXYCODONE ER 10 MG TAB PO (20:37)
[2021-01-22] MEDS: SPIRONOLACTONE 25 MG TABLET 50 MG PO (20:38)
[2021-01-22] MEDS: SODIUM CHLORIDE 0.9% FLUSH 10 ML IV (20:39)
[2021-01-23] MEDS: hydrOXYzine pamoate 25 MG CAPSULE PO ×3 (00:02→11:03)
[2021-01-23] MEDS: OXYCODONE IR 10 MG TABLET PO ×6 (00:02→20:41)
[2021-01-23] MEDS: IBUPROFEN 400 MG TABLET PO ×6 (00:02→20:40)
[2021-01-23] MEDS: CYCLOBENZAPRINE 10 MG TABLET PO ×2 (00:02→13:58)
[2021-01-23 04:12] VITALS: BP 132/68; PULSE 72; RESP 16; TEMP 36.4; O2SAT 99
[2021-01-23] MEDS: GABAPENTIN 300 MG CAPSULE PO ×3 (08:36→20:40)
[2021-01-23] MEDS: LORATADINE 10 MG TABLET PO (08:36)
[2021-01-23] MEDS: DOCUSATE 100 MG CAPSULE PO ×2 (08:36→20:40)
[2021-01-23] MEDS: ASPIRIN EC 81 MG TABLET PO ×2 (08:36→20:39)
[2021-01-23] MEDS: ACETAMINOPHEN 325 MG TABLET 650 MG PO ×3 (08:36→20:39)
[2021-01-23 08:37] VITALS: BP 132/68; PULSE 72
[2021-01-23] MEDS: VENLAFAXINE ER 75 MG CAP 150 MG PO (08:37)
[2021-01-23] MEDS: hydroCHLOROthiazide 25 MG TABLET PO (08:37)
[2021-01-23] MEDS: LOSARTAN 25 MG TABLET 50 MG PO (08:37)
[2021-01-23] MEDS: OXYCODONE ER 10 MG TAB PO ×2 (08:37→21:20)
[2021-01-23] MEDS: SODIUM CHLORIDE 0.9% FLUSH 10 ML IV ×2 (08:38→20:40)
--- NOTE | 2021-01-23 09:15 | PT.IPTN ---
Current Diagnoses Unilateral primary osteoarthritis, left knee (01/22/21) Surgery Performed Operation Date: 01/21/21 07:45 Actual Procedures p Total Knee Arthroplasty & injection on the right knee(Left) - Andrea Serrato MD Physical Therapy Treatment Note M2 PT-IP Current Condition Start: 01/21/21 16:26 Freq: NEEDED Status: Active Protocol: Document 01/22/21 09:29 MA (Rec: 01/22/21 09:40 MA [id number]) Physical Therapy Current Condition Current Condition Evaluation Date 01/21/21 Treatment Diagnosis s/p L TKA; difficulty in walking Onset Date 01/21/21 Precautions Other Precautions LLE WBAT Weight Bearing Status Weight Bearing Status Weight Bear as Tolerated Allowed Weight Bearing Amount (enter % LLE WBAT or #) (%) M3 PT-IP Subjective Start: 01/21/21 16:26 Freq: NEEDED Status: Active Protocol: Document 01/23/21 09:15 AB (Rec: 01/23/21 11:19 AB [email or web address]) Subjective Physical Therapy Visit Type Type Treatment Note Visit Start Time 09:15 Visit Stop Time 09:38 Total Visit Minutes 23 Number of SECURITY ENGINEER Visits 0 Physical Therapy Visit Comments Patient Comments pt is agreeable to do PT Therapy Pain Assessment Pain When Pain Assessed At Rest Pain Present Pain Present Pain Reported Location left knee Intensity 4 Scale Used 10/10 with mobility Pain Behaviors Calling Out,Facial Grimacing, Guarding,Holding Area,Moaning, Wincing Pain Management Techniques Apply Cold,Distraction, Modification of Treatment,Re- positioning,Timing of Activity with Medications M4 PT-IP Mobility and Gait Start: 01/21/21 16:26 Freq: NEEDED Status: Active Protocol: Document 01/23/21 09:15 AB (Rec: 01/23/21 11:19 AB [email or web address]) PT-Bed Mobility Assessment Supine to Sit Supine to Sit Moderate Assistance,Maximum Assistance,1 Person Assistance Sit to Supine Sit to Supine Maximum Assistance,1 Person Assistance,2 Person Assistance PT-Transfer Assessment Sit to and From Stand Sit to and from Stand Maximum Assistance,1 Person Assistance,Use of Upper Extremities Equipment Transfer Assistive Device Gait Belt,Front Wheeled Walker Orthotic/Prosthetic Devices or Brace: No Transfers Transfer Destination Bedside Commode Transfer Technique Stand Step Pivot Transfer Ability Level of Assist Maximum Assistance,1 Person Assistance,Use of Upper Extremities Comments Mobility Comments pt continues to c/o increase pain on L knee but agreed to do PT. completed heel slides prior to mobility and passive stretching with rolled towel: PROM flexion on L knee ~ 20 deg and unable to tolerate further bending and only tolerated ~ 10-15 sec at a time. c/o increase pain on L knee to 10/10. pt requesting to use the toilet. completed bed moblity supine to sit mod to max A and max cues. needs assist for LLE support. completed sit to stand max A and max cues and step transfer to bedside commode using FWW max A and max cues. pt limited in weight bearing on LLE with slight buckling during stepping. pt. c/o increase pain and stated that she is feeling lightheaded but dissipated after cuing to take deep breaths. pt refused to sit on chair and wants to go back to bed. completed sit to stand from bedside commode max A and cues and step transfer to bed using FWW max A and cues. max A x 1-2 for sit to supine. positioned pt in bed. call light and table placed within reach. M5 PT-IP Objective Assessments Start: 01/21/21 16:26 Freq: NEEDED Status: Active Protocol: Document 01/21/21 15:15 AB (Rec: 01/21/21 16:38 AB [id number]) Orientation Orientation/Cognition Level of Alertness Alert Orientation Name,Place,Situation Language Function Ability No Deficits Noted Safety Awareness Decreased Safety Awareness Memory Description No Deficits Noted Gross Range of Motion Lower Extremity ROM Assessment Left Impaired Impairments L knee flexion: ~ 20 deg Strength Lower Extremity Strength Assessment Bilaterally Impaired Comments Strength Comments LLE: 3-/5 RLE 3+/5 Sensation Assessment Sensation Gross Sensation WNL Muscle Tone Muscle Tone WNL Yes M6 PT-IP Treatment Start: 01/21/21 16:26 Freq: NEEDED Status: Active Protocol: Document 01/23/21 09:15 AB (Rec: 01/23/21 11:19 AB [email or web address]) Physical Therapy Treatment Exercises Exercises Heel Slides Education Education Provided Safety M7 PT-IP Assessment and Plan Start: 01/21/21 16:26 Freq: NEEDED Status: Active Protocol: Document 01/23/21 09:15 AB (Rec: 01/23/21 11:19 AB [email or web address]) PT Summary Assessment and Plan Potential Rehabilitation Potential Fair Summary Impairments Pain,ROM,Strength,Balance, Coordination,Sensation,Tone, Cognition,Bed Mobility, Transfers,Gait,Activity Tolerance Progress Towards Goals Slow Progress due to Pain Assessment Summary pt continues to c/o increase L knee pain to 10/10 with movement limiting mobility and activity tolerance and unable to ambulate at this time. continues to require max A with bed mobility and transfers using FWW. informed protective services case worker regarding pt's mobility level and SNF recommendation. will continue to assess progress. Goals Bed Mobility Goal Standby Assistance Transfer Goal Standby Assistance,Front Wheeled Walker Gait Goal Standby Assistance,Front Wheel Walker Gait Distance 150 Other Goals up/down 2 steps using SPC/GLOBAL ACCOUNT EXECUTIVE min A Days to Meet Goals 5 Frequency of Treatment Frequency Of Treatment Twice a Day Treatment Plan Physical Therapy Treatment Plan Bed Mobility Training,Transfer Training,Gait Training, Therapeutic Exercise,Balance Retraining,Post Op Education, Discharge Planning,Hot or Cold Pack,Neuromuscular Re-ed, Coordination Retraining,Manual Therapy Precautions Other Precautions LLE WBAT Recommendations To Nursing Amount of Assist Needed 2 Person Assist Discharge Recommendations PT Discharge Recommendations SNF Rehab Transportation Needs at Discharge Wheelchair/Cabulance
--- NOTE | 2021-01-23 09:28 | P.DS_ITS ---
History of Present Illness History of Present Illness Date Patient Seen: 01/23/21 Time Patient Seen: 09:29 Chief complaint: LEFT TKA, left knee pain Narrative: The patient is complaining of left knee pain which is 68/10. Her pain is somewhat better with long-acting OxyContin added. She denies fevers, chills, night sweats. Denies numbness or tingling. No nausea or vomiting. She worked with physical therapy yesterday but was not cleared. Overall, she is feeling somewhat better today, and hopefully we can discharge her home after she is cleared by Physical therapy. Discharge Providers Provider Date of admission: 01/22/21 10:26 Discharge Date: 01/23/21 Primary care physician: Petr Fisher DO Consults: 01/21/21 06:19 Consult to Anesthesiology Routine Comment: Consulting Provider: Anesthesiologist Reason for consultation: Regional block for post operative pain control 01/21/21 09:52 Consult to Discharge Planning Routine Comment: Consult to Physical Therapy Evaluate & Treat Comment: Physician Instructions: postop TKA protocol Consult to Respiratory Therapy Evaluate & Treat Comment: Physician Instructions: Evaluate and treat Discharge provider: Silvia Leon PA-C Summary Hospital Course Discharge Diagnosis: Left knee osteoarthritis Hospital Course: Procedure: Left total knee arthroplasty; right knee intra- articular steroid injection Same procedure as scheduled: Yes Indications: Bilateral knee osteoarthritis.? Left knee osteoarthrosis resistance further conservative measures Surgeon: Andrea Serrato Facilities Maintenance Engineer: Silvia Leon Click Yes if Unassisted: No Anesthesia Type: General Operative Notes Findings: Left knee osteoarthritis with [id number] articulation of the medial compartment overall varus aligned Closure Type: primary Prosthetic devices, grafts, tissues, transplants, or devices: Anderson and nephew Journey 2 CR Oxinium femoral component size 5, left Journey tibial base plate size 4, left Size 3-4, left 10 mm thick Journey 2 XLPE deep dish articular insert 32 mm oval Kaylee 2 patellar button Estimated Blood Loss (mL): 200 Tourniquet time (min): 17 Status at Discharge Cognitive/behavioral status at discharge: oriented Functional status at discharge: uses cane/walker Overall status at discharge: patient is progressing back to baseline Exam Vital Signs (past 8 hours): - 01/23/21 04:12 01/23/21 08:37 Temperature 97.5 F L Pulse Rate 72 72 Respiratory Rate 16 Blood Pressure 132/68 132/68 Pulse Oximetry 99 Oxygen Delivery Method Room Air Oxygen Flow Rate 0 Narrative Exam Narrative: Pleasant 50-year-old female, resting comfortably in bed, no acute distress. Bilateral lower extremities is grossly intact to light touch. Motor function within normal limits in bilateral lower extremities. Incision is clean, dry, intact. Bilateral calves are soft, nontender to palpation. PFS Medical History Acne Back pain Chronic sinusitis Depression Easy bruisability Endometriosis GERD (gastroesophageal reflux disease) H/O ETOH abuse HTN (hypertension) Left hip pain Migraines Noncompliance Numbness Pneumonia Thyroid nodule Surgical History H/O: hysterectomy History of carpal tunnel surgery of right wrist History of delivery History of hand surgery History of lumbar fusion Hx of sinus surgery S/P hemilaminotomy Social History household members: spouse and children Smoking Status: Former smoker alcohol intake: former Discharge Assessment & Plan Assessment and Plan Assessment: Stable status post left total knee arthroplasty Plan of Treatment: DC home today after cleared by a PT -aspirin 81 mg b.i.d. x6 weeks for DVT prophylaxis -with Tylenol, ibuprofen around the clock. Long-acting OxyContin b.i.d. x5 days and then q.h.s. x5 days upon discharge. Use short-acting Oxy as needed -weight bearing as tolerated with front wheeled walker Discharge Plan Discharge Plan Patient Disposition: Home Discharge orders & Medications Prescriptions: New aspirin 81 mg Tablet,Delayed Release (Dr/Ec) 81 mg PO BID PRN (Reason: Prevent blood clots x6 weeks) Qty: 90 RF: 0 ibuprofen 400 mg Tablet 400 mg PO Q4HR Qty: 90 RF: 0 oxycodone [OxyContin] 10 mg Tablet,Oral Only,Ext.Rel.12 Hr See Rx Instructions .ROUTE .COMPLEX Qty: 15 RF: 0 hydroxyzine pamoate 25 mg Capsule 25 mg PO Q4HR PRN (Reason: Anxiety/muscle spasm) Qty: 60 RF: 0 oxycodone 10 mg Tablet 10 mg PO Q3HR PRN (Reason: Pain, Severe (7-10)) Qty: 42 RF: 0 Continued venlafaxine [Effexor XR] 150 MG capsule,extended release 24hr 150 mg PO QDAY Qty: 0 RF: 0 losartan 25 MG tablet 50 mg PO QDAY Qty: 0 RF: 0 hydrochlorothiazide 25 MG tablet 25 mg PO QDAY Qty: 0 RF: 0 gabapentin [Neurontin] 300 MG capsule 300 mg PO TID Qty: 0 RF: 0 rizatriptan [Maxalt] 5 MG tablet 5 mg PO BIDP PRN (Reason: migraines) Qty: 0 RF: 0 spironolactone 50 mg Tablet 50 mg PO BEDTIME RF: 0 cyclobenzaprine 10 MG tablet 10 mg PO TIDP PRN (Reason: muscle spasms) RF: 0 loratadine 10 mg Capsule 10 mg PO DAILY RF: 0 docusate sodium 100 mg Capsule 100 mg PO BID Qty: 0 RF: 0 hydroxyzine pamoate 25 mg capsule 25 mg PO Q4HR PRN (Reason: Anxiety) RF: 0 estradiol 0.05 mg/24 hr patch weekly 0.05 mg transdermal WEEKLY RF: 0 Changed acetaminophen [Tylenol Extra Strength] 500 mg Tablet 1,000 mg PO TID Qty: 0 RF: 0 Follow up/Referrals: Petr Fisher DO [Primary Care Provider] - Andrea Serrato MD [Physician] - (10-14 days for postoperative visit) Diet/Activity/Treatments Diet: Diet as Tolerated and Regular Activity: Weight-bearing as tolerated with front wheeled walker Cold/Heat Therapy: Use ice as needed for pain Other treatments: Aspirin 81 mg twice daily x6 weeks to prevent blood clots Use Tylenol and ibuprofen as scheduled for pain. Skin/Wound/Dressing Care Report to your healthcare provider any signs of infection, such as:: chills, fever, night sweats, unusual drainage and unusual redness Dressing: Okay to remove Mathieu wrap and shower after 48 hours from surgery. Keep dressing intact, call the office if dressing becomes soiled, saturated or wet. Visit Report/Discharge Packet Instructions: DI for Knee Replacement, DI for Prescription Opioid Use Stand Alone Forms: Surgery Discharge Discharge Data Primary Care Provider: Petr Fisher Attending Provider: Andrea Serrato
[2021-01-23 11:00] VITALS: BP 101/59; PULSE 86; RESP 16; TEMP 36.8; O2SAT 99
--- NOTE | 2021-01-23 11:44 | CM.DPNOTE ---
DCP Note Therapy team recommending SNF at this time, patient has [facility]. Met w/patient to review DCP. Patient still hopeful to DC home w/her spouse and family to assist, states she has had multiple spinal surgeries and this is much more painful than those. Patient agreeable to rehab if continues to be recommended, SNF can be secured, and insurance auth in place. Reviewed case w/ PT Dilma; team hopeful patient will progress towards return home w/family and outpatient PT vs Home w/ HH if insurance will cover. Will research SNF options contracted with [facility], on patient's behalf JW
--- NOTE | 2021-01-23 12:40 | PT.IPTN ---
Current Diagnoses Unilateral primary osteoarthritis, left knee (01/22/21) Surgery Performed Operation Date: 01/21/21 07:45 Actual Procedures p Total Knee Arthroplasty & injection on the right knee(Left) - Andrea Serrato MD Physical Therapy Treatment Note M2 PT-IP Current Condition Start: 01/21/21 16:26 Freq: NEEDED Status: Active Protocol: Document 01/22/21 09:29 MA (Rec: 01/22/21 09:40 MA [email or web address]) Physical Therapy Current Condition Current Condition Evaluation Date 01/21/21 Treatment Diagnosis s/p L TKA; difficulty in walking Onset Date 01/21/21 Precautions Other Precautions LLE WBAT Weight Bearing Status Weight Bearing Status Weight Bear as Tolerated Allowed Weight Bearing Amount (enter % LLE WBAT or #) (%) M3 PT-IP Subjective Start: 01/21/21 16:26 Freq: NEEDED Status: Active Protocol: Document 01/23/21 12:40 AB (Rec: 01/23/21 13:25 AB [email or web address]) Subjective Physical Therapy Visit Type Type Treatment Note Visit Start Time 12:40 Visit Stop Time 13:07 Total Visit Minutes 27 Number of BEHAVIORAL HEALTH TECHNICIAN Visits 0 Physical Therapy Visit Comments Patient Comments agreeable to do PT Therapy Pain Assessment Pain When Pain Assessed At Rest Pain Present Pain Present Pain Reported Location left knee Intensity 4 Pain Management Techniques Apply Cold,Distraction, Modification of Treatment,Re- positioning,Timing of Activity with Medications M4 PT-IP Mobility and Gait Start: 01/21/21 16:26 Freq: NEEDED Status: Active Protocol: Document 01/23/21 12:40 AB (Rec: 01/23/21 13:25 AB [id number]) PT-Bed Mobility Assessment Supine to Sit Supine to Sit Minimal Assistance,Moderate Assistance,Head of Bed Elevated,Bedrails Sit to Supine Sit to Supine Maximum Assistance,Bedrails PT-Transfer Assessment Sit to and From Stand Sit to and from Stand Moderate Assistance,Maximum Assistance,1 Person Assistance ,Use of Upper Extremities Equipment Transfer Assistive Device Gait Belt,Front Wheeled Walker Orthotic/Prosthetic Devices or Brace: No Comments Mobility Comments pt agreeable to do PT. completed heel slides with assist, passive stretching with assist and was able to hold for ~15 sec x 2 and 30 sec x2. completed supine to sit HOB elevated and used bed rail min to mod A for LLE support. c/o nausea. BP 143/ 77. completed sit to stand mod to max A and ambulated ~ 12 ft using FWW and cues for L quads activation. pt with increase guarding and is hesistant to put weight on LLE . encouraged pt to use LLE. pt does not want to sit on the chair. rested on EOB and refused further ambulation. stated that she has a lot of knee pain and wants to go back to bed. completed sit to supine max A and max cues. positioned in bed. informed pt and encouraged to do heel slides, walk with nursing again and position bed in chair position since she does not want to sit on the chair. informed pt that the hospital bed has chair function and can be positioned like chair; showed pt. pt stated that she is willing to do it when she has her dinner. ice pack provided. call light and table placed within reach . Gait Assessment Gait Gait Assistance Required: Moderate Assistance,1 Person Assist Distance (Feet) 12 Assistive Devices Assistive Device Gait Belt,Front Wheeled Walker Orthotic/Prosthetic Devices or Brace: No Gait Deviations General Gait Pattern Decreased Stride Length, Decreased Feet Clearance,Step- to Gait Factors Limiting Gait Function Factors Limiting Gait Function Decreased Activity Tolerance, Decreased Strength,Limited Range of Motion,Pain,Poor Balance,Poor Safety Awareness Comments Gait Comments pls refer to mobiltiy section for details M5 PT-IP Objective Assessments Start: 01/21/21 16:26 Freq: NEEDED Status: Active Protocol: Document 01/21/21 15:15 AB (Rec: 01/21/21 16:38 AB [email or web address]) Orientation Orientation/Cognition Level of Alertness Alert Orientation Name,Place,Situation Language Function Ability No Deficits Noted Safety Awareness Decreased Safety Awareness Memory Description No Deficits Noted Gross Range of Motion Lower Extremity ROM Assessment Left Impaired Impairments L knee flexion: ~ 20 deg Strength Lower Extremity Strength Assessment Bilaterally Impaired Comments Strength Comments LLE: 3-/5 RLE 3+/5 Sensation Assessment Sensation Gross Sensation WNL Muscle Tone Muscle Tone WNL Yes M6 PT-IP Treatment Start: 01/21/21 16:26 Freq: NEEDED Status: Active Protocol: Document 01/23/21 12:40 AB (Rec: 01/23/21 13:25 AB [email or web address]) Physical Therapy Treatment Exercises Exercises Heel Slides Education Education Provided Weight Bearing Status,Safety M7 PT-IP Assessment and Plan Start: 01/21/21 16:26 Freq: NEEDED Status: Active Protocol: Document 01/23/21 12:40 AB (Rec: 01/23/21 13:25 AB [email or web address]) PT Summary Assessment and Plan Potential Rehabilitation Potential Fair Summary Impairments Pain,ROM,Strength,Balance, Coordination,Sensation,Tone, Cognition,Bed Mobility, Transfers,Gait,Activity Tolerance Progress Towards Goals Slow Progress due to Pain,Slow Progress due to Activity Tolerance Assessment Summary pt continues to c/o increase L knee pain. able to ambulate today but only tolerated 12 ft using FWW mod to max A and max cues. Pt needs to be more independent to safely go home . pt unable to tolerate much activity and c/o pain. Pt will require SNF rehab. Goals Bed Mobility Goal Standby Assistance Transfer Goal Standby Assistance,Front Wheeled Walker Gait Goal Standby Assistance,Front Wheel Walker Gait Distance 150 Other Goals up/down 2 steps using SPC/ONLINE BANKING SPECIALIST min A Days to Meet Goals 5 Frequency of Treatment Frequency Of Treatment Twice a Day Treatment Plan Physical Therapy Treatment Plan Bed Mobility Training,Transfer Training,Gait Training, Therapeutic Exercise,Balance Retraining,Post Op Education, Discharge Planning,Hot or Cold Pack,Neuromuscular Re-ed, Coordination Retraining,Manual Therapy Precautions Other Precautions LLE WBAT Recommendations To Nursing Amount of Assist Needed 2 Person Assist Discharge Recommendations PT Discharge Recommendations SNF Rehab Transportation Needs at Discharge Wheelchair/Cabulance
[2021-01-23 15:10] VITALS: BP 124/71; PULSE 82; RESP 16; TEMP 37.1; O2SAT 98
--- NOTE | 2021-01-23 15:27 | PC.NURSE ---
Pt A&OX3, continues to report :a lot of pain in L knee at 6/10 pain after working with therapy. Upon reassessment of breakthrough and scheduled pain medications pt reports pain improved to 5/10. Pt continues to request the bedpan despite much encouragement to use the bsc and get out of bed. Pt refuses stating it hurts too much to move. Ortho clears patient for discharge, PT recommending SNF, pt aggreeable. Pt remains x1 assist with FWW.
[2021-01-23 19:32] VITALS: BP 142/71; PULSE 86; RESP 16; TEMP 36.1; O2SAT 98
[2021-01-23] MEDS: SPIRONOLACTONE 25 MG TABLET 50 MG PO (20:40)
[2021-01-24 00:24] VITALS: BP 117/62; PULSE 99; RESP 16; TEMP 36.2; O2SAT 95
[2021-01-24] MEDS: CYCLOBENZAPRINE 10 MG TABLET PO (00:27)
[2021-01-24] MEDS: hydrOXYzine pamoate 25 MG CAPSULE PO ×3 (00:27→11:06)
[2021-01-24] MEDS: IBUPROFEN 400 MG TABLET PO ×4 (00:27→14:05)
[2021-01-24] MEDS: OXYCODONE IR 10 MG TABLET PO ×4 (00:29→14:07)
[2021-01-24 05:00] VITALS: BP 127/69; PULSE 83; RESP 16; TEMP 36.2; O2SAT 98
[2021-01-24 08:00] VITALS: BP 111/65; PULSE 81; RESP 16; TEMP 36.3; O2SAT 99
[2021-01-24] MEDS: LORATADINE 10 MG TABLET PO (08:21)
[2021-01-24] MEDS: VENLAFAXINE ER 75 MG CAP 150 MG PO (08:21)
[2021-01-24] MEDS: GABAPENTIN 300 MG CAPSULE PO ×2 (08:21→14:07)
[2021-01-24] MEDS: ASPIRIN EC 81 MG TABLET PO (08:22)
[2021-01-24] MEDS: SODIUM CHLORIDE 0.9% FLUSH 10 ML IV (08:22)
[2021-01-24] MEDS: OXYCODONE ER 10 MG TAB PO (08:26)
[2021-01-24 08:27] VITALS: BP 127/69; PULSE 83
[2021-01-24] MEDS: LOSARTAN 25 MG TABLET 50 MG PO (08:27)
[2021-01-24] MEDS: DOCUSATE 100 MG CAPSULE PO (08:28)
[2021-01-24] MEDS: hydroCHLOROthiazide 25 MG TABLET PO (08:28)
[2021-01-24] MEDS: ACETAMINOPHEN 325 MG TABLET 650 MG PO ×2 (08:30→14:07)
--- NOTE | 2021-01-24 09:06 | P.DS_ITS ---
History of Present Illness History of Present Illness Date Patient Seen: 01/24/21 Time Patient Seen: 09:06 Chief complaint: LEFT TKA, left knee pain Narrative: The history and physical is contained in the chart previously completed note. Please refer to that note for this information. Discharge Providers Provider Date of admission: 01/22/21 10:26 Discharge Date: 01/24/21 Primary care physician: Petr Fisher DO Consults: 01/21/21 06:19 Consult to Anesthesiology Routine Comment: Consulting Provider: Anesthesiologist Reason for consultation: Regional block for post operative pain control 01/21/21 09:52 Consult to Discharge Planning Routine Comment: Consult to Physical Therapy Evaluate & Treat Comment: Physician Instructions: postop TKA protocol Consult to Respiratory Therapy Evaluate & Treat Comment: Physician Instructions: Evaluate and treat 01/24/21 09:05 Consult to Home Health Routine Comment: Reason For Exam: PT, care after total knee replacement on the left Discharge provider: Raffy Mar MD Summary Hospital Course Discharge Diagnosis: 1. Left knee osteoarthritis 2. Obesity Hospital Course: The patient was admitted to the hospital and taken directly to the operating room on January 21, 2021. She underwent a left total knee replacement by Dr. Andrea Serrato. She was stable throughout her postoperative course but her postoperative course was marked by poor pain control and slow progress in physical therapy. Discharge was planned for yesterday however she continued to need 2 person assist to get out of bed. At the time of this dictation it is planned to continue physical therapy today and attempt discharge this afternoon with home health. long-term facility transfer, as advocated by Physical therapy, is unlikely to be possible due to COVID restrictions. Status at Discharge Cognitive/behavioral status at discharge: oriented Functional status at discharge: uses cane/walker Overall status at discharge: patient is progressing back to baseline Time Spent with Patient Time spent: Less than 30 minutes Exam Vital Signs (past 8 hours): - 01/24/21 05:00 01/24/21 08:00 01/24/21 08:27 Temperature 97.2 F L 97.4 F L Pulse Rate 83 81 83 Respiratory Rate 16 16 Blood Pressure 127/69 111/65 127/69 Pulse Oximetry 98 99 Oxygen Delivery Method Room Air Oxygen Flow Rate 0 Narrative Exam Narrative: Left knee wound is dressed with no significant drainage on the bandage. Calf is soft. Light touch and motion are intact in the left lower extremity. [facility] Medical History Acne Back pain Chronic sinusitis Depression Easy bruisability Endometriosis GERD (gastroesophageal reflux disease) H/O ETOH abuse HTN (hypertension) Left hip pain Migraines Noncompliance Numbness Pneumonia Thyroid nodule Surgical History H/O: hysterectomy History of carpal tunnel surgery of right wrist History of delivery History of hand surgery History of lumbar fusion Hx of sinus surgery S/P hemilaminotomy Social History household members: spouse and children Smoking Status: Former smoker alcohol intake: former Discharge Assessment & Plan Assessment and Plan Assessment: Stable status post left total knee arthroplasty Plan of Treatment: DC home today after cleared by a PT with home health assistance. -aspirin 81 mg b.i.d. x6 weeks for DVT prophylaxis -with Tylenol, ibuprofen around the clock. Long-acting OxyContin b.i.d. x5 days and then q.h.s. x5 days upon discharge. Use short-acting Oxy as needed -weight bearing as tolerated with front wheeled walker Discharge Plan Discharge Plan Patient Disposition: Home Discharge orders & Medications Prescriptions: New aspirin 81 mg Tablet,Delayed Release (Dr/Ec) 81 mg PO BID PRN (Reason: Prevent blood clots x6 weeks) Qty: 90 RF: 0 ibuprofen 400 mg Tablet 400 mg PO Q4HR Qty: 90 RF: 0 oxycodone [OxyContin] 10 mg Tablet,Oral Only,Ext.Rel.12 Hr See Rx Instructions .ROUTE .COMPLEX Qty: 15 RF: 0 hydroxyzine pamoate 25 mg Capsule 25 mg PO Q4HR PRN (Reason: Anxiety/muscle spasm) Qty: 60 RF: 0 oxycodone 10 mg Tablet 10 mg PO Q3HR PRN (Reason: Pain, Severe (7-10)) Qty: 42 RF: 0 Continued venlafaxine [Effexor XR] 150 MG capsule,extended release 24hr 150 mg PO QDAY Qty: 0 RF: 0 losartan 25 MG tablet 50 mg PO QDAY Qty: 0 RF: 0 hydrochlorothiazide 25 MG tablet 25 mg PO QDAY Qty: 0 RF: 0 gabapentin [Neurontin] 300 MG capsule 300 mg PO TID Qty: 0 RF: 0 rizatriptan [Maxalt] 5 MG tablet 5 mg PO BIDP PRN (Reason: migraines) Qty: 0 RF: 0 spironolactone 50 mg Tablet 50 mg PO BEDTIME RF: 0 cyclobenzaprine 10 MG tablet 10 mg PO TIDP PRN (Reason: muscle spasms) RF: 0 loratadine 10 mg Capsule 10 mg PO DAILY RF: 0 docusate sodium 100 mg Capsule 100 mg PO BID Qty: 0 RF: 0 hydroxyzine pamoate 25 mg capsule 25 mg PO Q4HR PRN (Reason: Anxiety) RF: 0 estradiol 0.05 mg/24 hr patch weekly 0.05 mg transdermal WEEKLY RF: 0 Changed acetaminophen [Tylenol Extra Strength] 500 mg Tablet 1,000 mg PO TID Qty: 0 RF: 0 Follow up/Referrals: Petr Fisher DO [Primary Care Provider] - Andrea Serrato MD [Physician] - (10-14 days for postoperative visit) Diet/Activity/Treatments Diet: Diet as Tolerated and Regular Activity: Weight-bearing as tolerated with front wheeled walker Cold/Heat Therapy: Use ice as needed for pain Other treatments: Aspirin 81 mg twice daily x6 weeks to prevent blood clots Use Tylenol and ibuprofen as scheduled for pain. Skin/Wound/Dressing Care Report to your healthcare provider any signs of infection, such as:: chills, fever, night sweats, unusual drainage and unusual redness Dressing: Okay to remove Mathieu wrap and shower after 48 hours from surgery. Keep dressing intact, call the office if dressing becomes soiled, saturated or wet. Visit Report/Discharge Packet Instructions: DI for Knee Replacement, DI for Prescription Opioid Use Stand Alone Forms: Surgery Discharge Discharge Data Primary Care Provider: Petr Fisher Attending Provider: Andrea Serrato
--- NOTE | 2021-01-24 09:54 | PT.IPTN ---
Current Diagnoses Unilateral primary osteoarthritis, left knee (01/21/21) Surgery Performed Operation Date: 01/21/21 07:45 Actual Procedures p Total Knee Arthroplasty & injection on the right knee(Left) - Andrea Serrato MD Physical Therapy Treatment Note M2 PT-IP Current Condition Start: 01/21/21 16:26 Freq: NEEDED Status: Active Protocol: Document 01/22/21 09:29 MA (Rec: 01/22/21 09:40 MA [email or web address]) Physical Therapy Current Condition Current Condition Evaluation Date 01/21/21 Treatment Diagnosis s/p L TKA; difficulty in walking Onset Date 01/21/21 Precautions Other Precautions LLE WBAT Weight Bearing Status Weight Bearing Status Weight Bear as Tolerated Allowed Weight Bearing Amount (enter % LLE WBAT or #) (%) M3 PT-IP Subjective Start: 01/21/21 16:26 Freq: NEEDED Status: Active Protocol: Document 01/24/21 09:54 AW (Rec: 01/24/21 11:08 AW [id number]) Subjective Physical Therapy Visit Type Type Treatment Note Visit Start Time 09:15 Visit Stop Time 09:54 Total Visit Minutes 39 Number of INSTRUMENT REPAIRER HELPER Visits 0 Physical Therapy Visit Comments Patient Comments agreeable to do PT Therapy Pain Assessment Pain When Pain Assessed During Mobility Pain Present Pain Present Pain Reported Location left knee Intensity 6 Scale Used 3/10 at rest; 6/10 during mobility Pain Behaviors Facial Grimacing,Guarding, Moaning,Wincing Pain Management Techniques Apply Cold,Distraction,Timing of Activity with Medications M4 PT-IP Mobility and Gait Start: 01/21/21 16:26 Freq: NEEDED Status: Active Protocol: Document 01/24/21 09:54 AW (Rec: 01/24/21 11:08 AW [id number]) PT-Bed Mobility Assessment Supine to Sit Supine to Sit Minimal Assistance Sit to Supine Sit to Supine Minimal Assistance PT-Transfer Assessment Sit to and From Stand Sit to and from Stand Minimal Assistance,1 Person Assistance,Use of Upper Extremities Equipment Transfer Assistive Device Gait Belt,Front Wheeled Walker Orthotic/Prosthetic Devices or Brace: No Transfers Transfer Destination Bed,Wheelchair Transfer Technique Stand Step Pivot Transfer Ability Level of Assist Minimal Assistance,1 Person Assistance,Use of Upper Extremities Comments Mobility Comments Pt was lying in bed as PT arrived. Pain at rest was 3/10 . Pt used gait belt as strap to assist herself toward left EOB, requiring min assist for LLE movement. She sat EOB with left heel on the floor and was able to stand min assist. She used FWW to ambulate toward the door ~15 feet and then sat on the w/c CGA and verbal cues. She was pushed in the w/c to the stairs where she was able to stand CGA/min A and used the walker to ambulate 3 feet to the stairs. She used a cane in her right hand and PT provided min-mod assist as pt ascended and descended 2 stairs with good patterning. PT provided manual bracing on descent to prevent knee buckling. Pt then ambulated 60 feet with FWW CGA before requesting to sit on the w/c. Back in the room, pt refused the chair and requested return to bed. Pt was able to transfer min assist with FWW and needed min assist to elevate LLE to the bed. She was left with call light and tray table in reach. Gait Assessment Gait Gait Assistance Required: Contact Guard Assist,1 Person Assist Distance (Feet) 60 Able to Maintain Weight Bearing Status Yes During Gait Assistive Devices Assistive Device Gait Belt,Front Wheeled Walker Orthotic/Prosthetic Devices or Brace: No Gait Deviations General Gait Pattern Antalgic,Decreased Stride Length,Decreased Feet Clearance,Step-to Gait Factors Limiting Gait Function Factors Limiting Gait Function Decreased Activity Tolerance, Decreased Strength,Limited Range of Motion,Pain Comments Gait Comments Pt ambulates with excessive left knee flexion but responds well to cues for weight acceptance and is able to offweight appropriately with BUE on the walker. Stair Climbing Assessment Evaluation Level of Assist On Stairs Minimal Assistance,Moderate Assistance,1 Person Assistance Devices Stair Climbing Assistive Devices Straight Cane Technique/Endurance Stair Climbing Direction Ascend and Descend Stair Climbing Technique Step to Step Number of Steps Climbed 2 Stair Climbing Set # Repetitions (reps) 1 Comments Stair Climbing Comments Pt used SPC in right hand as PT provided min to mod assist with left CAR DROPPER. M5 PT-IP Objective Assessments Start: 01/21/21 16:26 Freq: NEEDED Status: Active Protocol: Document 01/21/21 15:15 AB (Rec: 01/21/21 16:38 AB [id number]) Orientation Orientation/Cognition Level of Alertness Alert Orientation Name,Place,Situation Language Function Ability No Deficits Noted Safety Awareness Decreased Safety Awareness Memory Description No Deficits Noted Gross Range of Motion Lower Extremity ROM Assessment Left Impaired Impairments L knee flexion: ~ 20 deg Strength Lower Extremity Strength Assessment Bilaterally Impaired Comments Strength Comments LLE: 3-/5 RLE 3+/5 Sensation Assessment Sensation Gross Sensation WNL Muscle Tone Muscle Tone WNL Yes M6 PT-IP Treatment Start: 01/21/21 16:26 Freq: NEEDED Status: Active Protocol: Document 01/24/21 09:54 AW (Rec: 01/24/21 11:08 AW [id number]) Physical Therapy Treatment Exercises Exercises Heel Slides,Passive Knee Extension Hang,Seated Knee Flexion/Extension Education Education Provided Weight Bearing Status,Safety M7 PT-IP Assessment and Plan Start: 01/21/21 16:26 Freq: NEEDED Status: Active Protocol: Document 01/24/21 09:54 AW (Rec: 01/24/21 11:08 AW [id number]) PT Summary Assessment and Plan Potential Rehabilitation Potential Good Summary Impairments Pain,ROM,Strength,Balance, Coordination,Sensation,Tone, Cognition,Bed Mobility, Transfers,Gait,Activity Tolerance Progress Towards Goals Slow Progress due to Pain,Slow Progress due to Activity Tolerance Assessment Summary Pt progressed her ambulation this date and was able to complete stair training. Her will be here later today for caregiver training. Pt will be safe to discharge home once caregiver/stair training are complete. Goals Bed Mobility Goal Standby Assistance Transfer Goal Standby Assistance,Front Wheeled Walker Gait Goal Standby Assistance,Front Wheel Walker Gait Distance 150 Other Goals up/down 2 steps using SPC/CAR DROPPER min A Days to Meet Goals 5 Frequency of Treatment Frequency Of Treatment Twice a Day Treatment Plan Physical Therapy Treatment Plan Bed Mobility Training,Transfer Training,Gait Training, Therapeutic Exercise,Balance Retraining,Post Op Education, Discharge Planning,Hot or Cold Pack,Neuromuscular Re-ed, Coordination Retraining,Manual Therapy Other Recommendations and Next Treatment CGT, stairs Focus Precautions Other Precautions LLE WBAT Recommendations To Nursing Amount of Assist Needed 1 Person Assist Discharge Recommendations PT Discharge Recommendations Home vs SNF Transportation Needs at Discharge Private Vehicle,Wheelchair/ Cabulance
--- NOTE | 2021-01-24 12:59 | PT.IPTN ---
Current Diagnoses Unilateral primary osteoarthritis, left knee (01/21/21) Surgery Performed Operation Date: 01/21/21 07:45 Actual Procedures p Total Knee Arthroplasty & injection on the right knee(Left) - Andrea Serrato MD Physical Therapy Treatment Note M2 PT-IP Current Condition Start: 01/21/21 16:26 Freq: NEEDED Status: Active Protocol: Document 01/22/21 09:29 MA (Rec: 01/22/21 09:40 MA [email or web address]) Physical Therapy Current Condition Current Condition Evaluation Date 01/21/21 Treatment Diagnosis s/p L TKA; difficulty in walking Onset Date 01/21/21 Precautions Other Precautions LLE WBAT Weight Bearing Status Weight Bearing Status Weight Bear as Tolerated Allowed Weight Bearing Amount (enter % LLE WBAT or #) (%) M3 PT-IP Subjective Start: 01/21/21 16:26 Freq: NEEDED Status: Active Protocol: Document 01/24/21 12:59 AW (Rec: 01/24/21 13:28 AW [id number]) Subjective Physical Therapy Visit Type Type Treatment Note Visit Start Time 12:33 Visit Stop Time 12:59 Total Visit Minutes 26 Notes Pt's spouse, Petr, was present for caregiver training . Number of CLOTH BALE HEADER Visits 0 Physical Therapy Visit Comments Patient Comments Pt is willing to work with PT Therapy Pain Assessment Pain When Pain Assessed During Mobility Pain Present Pain Present Pain Reported Location left knee Intensity 5 Pain Behaviors Facial Grimacing,Guarding, Moaning,Wincing Pain Management Techniques Apply Cold,Distraction,Timing of Activity with Medications M4 PT-IP Mobility and Gait Start: 01/21/21 16:26 Freq: NEEDED Status: Active Protocol: Document 01/24/21 12:59 AW (Rec: 01/24/21 13:28 AW [id number]) PT-Bed Mobility Assessment Supine to Sit Supine to Sit Minimal Assistance Sit to Supine Sit to Supine Minimal Assistance PT-Transfer Assessment Sit to and From Stand Sit to and from Stand Contact Guard Assistance, Moderate Assistance,1 Person Assistance,Use of Upper Extremities Equipment Transfer Assistive Device Gait Belt,Front Wheeled Walker Orthotic/Prosthetic Devices or Brace: No Transfers Transfer Destination Bed,Wheelchair Transfer Ability Level of Assist Minimal Assistance,1 Person Assistance,Use of Upper Extremities Comments Mobility Comments Pt was lying in bed visiting with her as PT arrived . Provided assist for pt to sit up EOB. PT educated to don gait belt and he was able to complete. Pt's spouse provided CGA to min A for pt to stand. She ambulated CGA with FWW to the wheelchair parked outside the room as her assisted. She transferred to the w/c and then was escorted to the stairs. Pt's assisted pt to stand and to use FWW to approach the stairs. PT educated pt and her spouse on stair climbing technique and recommendation for SPC in right hand and BUILDINGS AND GROUNDS SUPERINTENDENT on left side. Pt's spouse was able to provide all assist (min-mod) for ascent and descent. He then provided CGA for pt to ambulate 60 feet with FWW before returning to w/c due to increased pain. Pt was escorted back to the room where her assisted her to stand, ambulate to the toilet with FWW, and transfer to the toilet. She stood with her 's assist and walked back to the bed. Spouse provided min assist to elevate LLE to the bed. Pt was left with call light in reach . Gait Assessment Gait Gait Assistance Required: Contact Guard Assist,1 Person Assist Distance (Feet) 60 Able to Maintain Weight Bearing Status Yes During Gait Assistive Devices Assistive Device Gait Belt,Front Wheeled Walker Orthotic/Prosthetic Devices or Brace: No Gait Deviations General Gait Pattern Antalgic,Decreased Stride Length,Decreased Feet Clearance,Step-to Gait Factors Limiting Gait Function Factors Limiting Gait Function Decreased Activity Tolerance, Decreased Strength,Limited Range of Motion,Pain Stair Climbing Assessment Evaluation Level of Assist On Stairs Minimal Assistance,Moderate Assistance,1 Person Assistance Devices Stair Climbing Assistive Devices Straight Cane Technique/Endurance Stair Climbing Direction Ascend and Descend Number of Steps Climbed 2 Stair Climbing Set # Repetitions (reps) 1 Comments Stair Climbing Comments Pt used SPC in right hand as her spouse provided min to mod assist with left BUILDINGS AND GROUNDS SUPERINTENDENT. Spouse also provided assist to keep left knee from buckling during descent. PT-Balance Assessment Sitting Balance and Reactions Static Sitting Balance Ability Good Dynamic Sitting Balance Ability Good Standing Balance and Reactions Static Standing Balance Ability Fair Dynamic Standing Balance Ability Fair Device Used FWW M5 PT-IP Objective Assessments Start: 01/21/21 16:26 Freq: NEEDED Status: Active Protocol: Document 01/21/21 15:15 AB (Rec: 01/21/21 16:38 AB [id number]) Orientation Orientation/Cognition Level of Alertness Alert Orientation Name,Place,Situation Language Function Ability No Deficits Noted Safety Awareness Decreased Safety Awareness Memory Description No Deficits Noted Gross Range of Motion Lower Extremity ROM Assessment Left Impaired Impairments L knee flexion: ~ 20 deg Strength Lower Extremity Strength Assessment Bilaterally Impaired Comments Strength Comments LLE: 3-/5 RLE 3+/5 Sensation Assessment Sensation Gross Sensation WNL Muscle Tone Muscle Tone WNL Yes M6 PT-IP Treatment Start: 01/21/21 16:26 Freq: NEEDED Status: Active Protocol: Document 01/24/21 12:59 AW (Rec: 01/24/21 13:28 AW [id number]) Physical Therapy Treatment Education Education Provided Weight Bearing Status,Safety Other Treatments Other Treatment Performed Completed all necessary caregiver training and answered all questions about mobility at home. PT encouraged pt to mobilize every other hour at least when home and to continue working on ROM. M7 PT-IP Assessment and Plan Start: 01/21/21 16:26 Freq: NEEDED Status: Active Protocol: Document 01/24/21 12:59 AW (Rec: 01/24/21 13:28 AW [id number]) PT Summary Assessment and Plan Potential Rehabilitation Potential Good Summary Impairments Pain,ROM,Strength,Balance, Coordination,Sensation,Tone, Cognition,Bed Mobility, Transfers,Gait,Activity Tolerance Progress Towards Goals Progressing Toward Goals,Slow Progress due to Pain,Slow Progress due to Activity Tolerance Assessment Summary Pt completed 60 feet ambulation and stair training as her safely provided all necessary assist. Pt is safe for discharge home with assist once medically cleared. Her will stay with her today and her mother will stay with her tomorrow and the next day as needed. Goals Bed Mobility Goal Standby Assistance Transfer Goal Standby Assistance,Front Wheeled Walker Gait Goal Standby Assistance,Front Wheel Walker Gait Distance 150 Other Goals up/down 2 steps using SPC/BUILDINGS AND GROUNDS SUPERINTENDENT min A Days to Meet Goals 5 Frequency of Treatment Frequency Of Treatment Twice a Day Treatment Plan Physical Therapy Treatment Plan Bed Mobility Training,Transfer Training,Gait Training, Therapeutic Exercise,Balance Retraining,Post Op Education, Discharge Planning,Hot or Cold Pack,Neuromuscular Re-ed, Coordination Retraining,Manual Therapy Other Recommendations and Next Treatment CGT, stairs Focus Precautions Other Precautions LLE WBAT Recommendations To Nursing Amount of Assist Needed 1 Person Assist Discharge Recommendations PT Discharge Recommendations Home with Assistance, Outpatient PT Transportation Needs at Discharge Private Vehicle
--- NOTE | 2021-01-24 13:57 | CM.DPNOTE ---
DCP/continued: Reviewed chart. Per Dr. Mar this AM patient is medically stable to d/c home today with HH. Dr. Mar signed F2F this AM. SATELLITE DISH INSTALLER spoke with Olga Lidia from therapy and she is in agreement to see patient this AM. After patient seen by therapy and caregiver training completed with spouse patient was cleared by therapy to return home. SATELLITE DISH INSTALLER met with patient and spouse re: home health. Patient has no preference in HH agencies but would like to make sure they are contracted with her health plan. Placed call to [facility] spoke with Nida, she reports that they do take patient's health plan on case by case basis. Nida requesting that demographic sheet be faxed to [facility]. Faxed requesting information to [facility] and received return phone call within an hour that they can accept referral. Order, F2F, and d/c summary faxed to [facility] . Patient and spouse provided with brochure for HH. Patient and spouse have no additional questions. Patient has FWW. RN updated. Patient expected to d/c home this afternoon with spouse. P: Home with [facility] . CHRISTINE Post
--- NOTE | 2021-01-24 15:47 | PC.NURSE ---
Pt A&Ox3. VSS, afebrile on RA. LS CTA. Pt able to work with therapy today with and tolerate stairs. She is cleared for discharge home with home health. She verbalizes understanding of medications, activity, site care, follow up and s/sx of infection. She is escorted to private vehicle with at 1435 with all of her belongings, prescriptions and FWW.
== END 2021-01-24 14:35 | disposition home health service (06) | DRG 302 ==
LOC: OR 07:17 → AC 09:24 → OR 01-24 11:02 → AC 01-24 11:02
PROVIDERS: Admitting Provider Orthopaedic Surgery Adult Reconstructive Orthopaedic Surgery; Family Provider Family Medicine; PCP Family Medicine; Referring Provider Orthopaedic Surgery Adult Reconstructive Orthopaedic Surgery; Visit Provider Orthopaedic Surgery Adult Reconstructive Orthopaedic Surgery
PROC: 0SRD0JZ Replacement of Left Knee Joint with Synthetic Substitute, Open Approach (ICD-10-PCS; CPT 27447; principal; 2021-01-21 07:45)
DX: M17.0 Bilateral primary osteoarthritis of knee (principal); F32.9 Major depressive disorder, single episode, unspecified; F41.9 Anxiety disorder, unspecified; I10 Essential (primary) hypertension; G89.18 Other acute postprocedural pain; G43.909 Migraine, unspecified, not intractable, without status migrainosus; E66.9 Obesity, unspecified; Z68.38 Body mass index [BMI] 38.0-38.9, adult; Z20.822 Contact with and (suspected) exposure to COVID-19; Z87.891 Personal history of nicotine dependence
CPT/HCPCS: 73560; 94760; 97110; 97116; 97162; 97530; C1776; J0330; J0690; J1100; J1170; J1885; J2250; J2270; J2405; J2704; J3010

== ENCOUNTER → 2021-02-16 14:30 | Day surgery (SDC) | payer OTHER, MEDICAID, SELFPAY ==
[2021-01-21 11:40] VITALS: BMI 38.0
--- NOTE | 2021-02-16 | DI.RAD.S_ITS ---
PROCEDURE: XR KNEE LT 1TO2V INDICATIONS: KNEE ADHESION POST OP MANIPULATION TECHNIQUE: 2 view(s) of the knee acquired. COMPARISON: [facility], CR, XR KNEE LT 1TO2V, 01/21/2021, 10:23. FINDINGS: Bones: Patient is status post knee joint arthroplasty. Hardware components are in expected positions. Visualized bony structures are intact. Soft tissues: Suprapatellar joint effusion with subcutaneous edema/gaseous foci and surgical drain in situ. IMPRESSION: Expected postsurgical change. Dictated by: Isaías Coffey M.D. on 02/17/2021 at 9:49 Approved by: Isaías Coffey M.D. on 02/17/2021 at 9:52
[2021-02-16 15:22] VITALS: BMI 36.9
[2021-02-16 15:32] LABS: COVID19 -Nasal RAPID Negative (Negative)
[2021-02-16 15:45] VITALS: BP 134/77; PULSE 72; RESP 16; TEMP 36.8; O2SAT 100
[2021-02-16] MEDS: LACTATED RINGERS 1,000 ML 42 ML IV (15:46)
--- NOTE | 2021-02-16 16:36 | PM.PREOP ---
Pre-operative Note COVID-19 COVID-19 status: Negative Result date/Date tested (Pos, Neg/Pending): 02/16/21 Interval Note History & Physical reviewed/Exam performed by Physician: Yes Changes to H&P: No H&P completed within 30 days and has changed as indicated here:: Plan for left knee PHIL
--- NOTE | 2021-02-16 16:50 | SUR.OPER ---
Supine on padded stretcher, head on pillow, arms at sides, right side rail left up, legs uncrossed, left leg controlled by surgeon.
--- NOTE | 2021-02-16 16:53 | PM.OP.1 ---
Operative Date/Time/Diagnoses Date of procedure: 02/16/21 Time of procedure: 16:53 Pre-op diagnosis: Arthrofibrosis of the left knee status post total knee arthroplasty Post-op diagnosis: same Procedure & Clinicians Procedure: Left knee manipulation under anesthesia Same procedure as scheduled: Yes Indications: Left knee arthrofibrosis status post total knee arthroplasty. She is approximately 3-4 weeks status post left total knee arthroplasty with physical therapy she could only flex to about 95?. Surgeon: Andrea Serrato Click Yes if Unassisted: Yes Anesthesia Type: General Operative Notes Findings: Left knee arthrofibrosis. Several audible pops during manipulation. Procedure in detail: Patient was met the preoperative holding area where the site and side surgery marked by MD. informed consent had been reviewed inside and the preoperative holding area. All last minute questions were answered. Patient then brought back into the operating room she was induced under general anesthesia. The knee with the femur held perpendicular to the floor and gravity flexion she had about 110 ? of flexion and she came out to full extension. The knee was then manipulated using a bouncing technique I was able to achieve approximately 15-20 degrees more flexion. Postoperative photo was obtained showing increased flexion. Knee was stable to on exam. Complications: none Post-operative Condition: stable Disposition: PACU Plan for aftercare: Discharge to home once stable from PACU.
[2021-02-16 16:58] VITALS: BP 142/73; PULSE 69; RESP 16; TEMP 36.8; O2SAT 100
[2021-02-16] MEDS: fentaNYL 100 MCG/2 ML INJ IV ×2 (17:03→17:13)
[2021-02-16] MEDS: ONDANSETRON 4 MG/2 ML INJ IV (17:21)
[2021-02-16] MEDS: OXYCODONE IR 5 MG TABLET PO (17:22)
[2021-02-16 17:50] VITALS: BP 152/84; PULSE 77; RESP 12; O2SAT 99
== END | disposition home or self-care (01) ==
PROVIDERS: Family Provider Family Medicine; PCP Family Medicine; Referring Provider Orthopaedic Surgery Adult Reconstructive Orthopaedic Surgery; Visit Provider Orthopaedic Surgery Adult Reconstructive Orthopaedic Surgery
PROC: (CPT 27570; principal; 2021-02-16 16:00)
DX: T84.82XA Fibrosis due to internal orthopedic prosthetic devices, implants and grafts, initial encounter (principal); Z96.652 Presence of left artificial knee joint
CPT/HCPCS: 27570; 73560; 87635; J0330; J2405; J2704; J3010